=== PATIENT | female | born 1955 | race Caucasian/White ===

== ENCOUNTER 2017-09-22 17:19 | Inpatient (IN) | payer OTHER ==
[~2017-09-22] VITALS: Ht 170.2 cm; Wt 44.0 kg
[2017-09-22] MEDS ORDERED: diphenhydrAMINE HCL 50 MG/ML VIAL - HS PRN IM (19:15)
[2017-09-22] MEDS ORDERED: diphenhydrAMINE HCL 50 MG CAP - HS PRN PO (19:15)
[2017-09-22] MEDS ORDERED: ALUMINUM/MAGNESIUM/SIMETH 30 ML CUP PO PRN (19:15)
[2017-09-22] MEDS ORDERED: LORazepam 2 MG/ML VIAL IV PUSH PRN ×4 (21:00)
[2017-09-22] MEDS ORDERED: FLUMAZENIL 0.5 MG/5 ML VIAL IV PUSH PRN (21:00)
[2017-09-22] MEDS ORDERED: HALOPERIDOL LACTATE 5 MG/ML AMP IM PRN (21:00)
[2017-09-22] MEDS: REMOVE OLD NICOTINE PATCH T-DERMAL SCH (21:00)
[2017-09-22] MEDS: LORazepam 2 MG TAB PO PRN (21:04)
[2017-09-22 21:55] VITALS: BP 82/53; PULSE 81; RESP 18; TEMP 98; O2SAT 98
[2017-09-23] MEDS: LORazepam 2 MG TAB PO PRN ×2 (00:40→20:58)
[2017-09-23 05:41] VITALS: BP 84/52; PULSE 72; RESP 16; TEMP 98; O2SAT 100
[2017-09-23] MEDS: NICOTINE 21 MG/24 HR PATCH T-DERMAL SCH (08:19)
[2017-09-23 09:38] LABS: BLOOD UREA NITROGEN 12 MG/DL (7-18); CALCIUM 8.1 MG/DL (8.5-10.1); CHLORIDE 108 MEQ/L (98-107); CREATININE 0.71 MG/DL (0.50-1.00); GLOMERULAR FILTRATION RATE 84 ML/MIN (>89); GLUCOSE,RANDOM 178 MG/DL (74-106); SODIUM (NA) 140 MEQ/L (136-145)
[2017-09-23 09:39] LABS: CHOLESTEROL 107 MG/DL (120-200); TRIGLYCERIDES 95 MG/DL (42-150)
[2017-09-23 09:41] LABS: CHOLESTEROL/ HDL RATIO 2.17 RATIO; HDL CHOLESTEROL 49.2 MG/DL (40.0-60.0); LDL CHOLESTEROL 39 MG/DL (0-99)
[2017-09-23 10:50] LABS: THYROXINE (T4) 6.3 MCG/DL (4.8-13.9)
[2017-09-23 10:59] LABS: FREE T3 1.65 PG/ML (2.18-3.98)
[2017-09-23] MEDS: LORazepam 1 MG TAB PO PRN ×2 (11:20→16:27)
[2017-09-23] MEDS: ACETAMINOPHEN 325 MG TAB PO PRN (11:21)
[2017-09-23] MEDS ORDERED: POTASSIUM CHLORIDE 20 MEQ PWD PACKET PO ONE (15:30)
--- NOTE | 2017-09-23 15:47 | PD.CONS ---
HPI Service [facility] Consult Requested By Primary Care Physician Unknown Diagnoses: History of Present Illness Mrs. King is a 62-year-old female. She came into the hospital after having hallucination for 2 days. She had been drinking heavily during this period which may be contributory. She is also been feeling very depressed and has a problem with depression in the past. We are evaluating this patient is a medical consult. Current medical conditions include delirium tremens, hypotension, and she has a chronic history of degenerative disc disease and osteoarthritis and has been narcotic dependent with high doses of morphine. She reports that she's been taking short acting morphine 30-60 mg by mouth 4-6 times a day. Her last dose was yesterday. She also takes 1 mg of Xanax 3 times a day and her last dose was yesterday. She is also been jerking 2-3 a call of beverages daily for at least a year and has been binging at higher amounts recently, especially the past 2 days. No reports of any surgical history. Blood pressures have been low but she is on benzodiazepines and she also has a smaller than average body habitus which could result in lower than actual blood pressure readings off a standard cuff. Review of Systems Constitutional: DENIES: Fatigue, Fever, Night Sweats Eyes: DENIES: Blurred vision, Diplopia, Eye inflammation, Eye pain Ears, nose, mouth, throat: DENIES: Hearing loss, Vertigo, Nasal discharge Respiratory: DENIES: Apneas, Cough, Snoring, Wheezing Cardiovascular: DENIES: Chest pain, Palpitations, Syncope Gastrointestinal: DENIES: Abdominal pain, Black stools, Bloody stools Musculoskeletal: COMPLAINS OF: Joint pain, Muscle aches, Stiffness, Back pain, Neck pain Integumentary: DENIES: Abnormal pigmentation, Pruritus, Rash, Nail changes Hematologic/lymphatic: DENIES: Bruising, Lymphadenopathy Immunologic/allergic: DENIES: Eczema, Urticaria Neurologic: DENIES: Abnormal gait, Headache, Paresthesias Psychiatric: COMPLAINS OF: Anxiety, Depression, Hallucinations, DENIES: Confusion Past Family Social History Allergies: Coded Allergies: No Known Allergies (Verified Allergy, Unknown, 09/22/17) Past Medical History History of pneumonia History of left arm DVT History of sciatica Disc herniation history Chronic back pain History of compression fracture History of pelvic wing fracture Past Surgical History None Reported Medications Wellbutrin, 150 mg by mouth twice a day Morphine sulfate 30-60 mg by mouth every 4-6 hours Xanax 1 mg by mouth 3 times a day Active Ordered Medications Administered Medications Medications (Trade) Dose Ordered Sig/Alicia Route PRN Reason Start Time Stop Time Status Last Admin Dose Admin Acetaminophen (Tylenol) 650 mg Q4H PRN PO Pain 1-5 or Temp >101F 09/22/17 19:15 09/23/17 11:21 Nicotine (Habitrol 21 Mg Patch.24 Hr) 1 patch DAILY T-DERMAL 09/23/17 09:00 09/23/17 08:19 Lorazepam (Ativan) 1 mg Q4H PRN PO CIWA 8-10 09/22/17 21:00 09/23/17 11:20 Lorazepam (Ativan) 2 mg Q2H PRN PO CIWA 11-14 09/22/17 21:00 09/23/17 00:40 Family History Her grandfather had depression Social History Patient smokes 1-2 packs per day 2-3 drinks alcohol is patient's baseline and binge drinking occasionally occurs , including for the past 2 days Distant history of cocaine and IV heroin abuse (20 years ago) Physical Exam Vital Signs Vital Signs Date Time Temp Pulse Resp B/P (MAP) Pulse Ox O2 Delivery O2 Flow Rate FiO2 09/23/17 05:41 98.0 72 16 84/52 (63) 100 09/22/17 21:55 98.0 81 18 82/53 (63) 98 Physical Exam GENERAL: NAD, A&Ox3, global cachexia HEAD: Normocephalic. NECK: Supple, trachea midline. No lymphadenopathy. EYES: No scleral icterus. No injection or drainage. CARDIOVASCULAR: Regular rate and rhythm without murmurs, gallops, or rubs. RESPIRATORY: Breath sounds equal bilaterally. No accessory muscle use. GASTROINTESTINAL: Abdomen soft, non-tender, nondistended. MUSCULOSKELETAL: No cyanosis, or edema. SKIN: Warm and dry. No track simon on arms. NEURO: No focal neurological deficitis. Laboratory Laboratory Tests Test 09/23/17 08:35 09/23/17 13:44 Blood Urea Nitrogen 12 Creatinine 0.71 Random Glucose 178 Calcium Level 8.1 Sodium Level 140 Potassium Level 3.3 Chloride Level 108 Carbon Dioxide Level 24.0 Anion Gap 8 Estimat Glomerular Filtration Rate 84 Triglycerides Level 95 Cholesterol Level 107 LDL Cholesterol 39 HDL Cholesterol 49.2 Cholesterol/HDL Ratio 2.17 Thyroxine (T4) 6.3 Free Triiodothyronine (T3) pg/dL 1.65 Thyroid Stimulating Hormone 3rd Gen 1.870 B-Type Natriuretic Peptide 45 Result Diagram: 09/23/17 0835 Assessment and Plan Problem List: (1) Delirium tremens ICD Code: F10.231 - Alcohol dependence with withdrawal delirium (2) Chronic back pain ICD Code: M54.9 - Dorsalgia, unspecified; G89.29 - Other chronic pain (3) Opioid dependence ICD Code: F11.20 - Opioid dependence, uncomplicated (4) Depression ICD Code: F32.9 - Major depressive disorder, single episode, unspecified Assessment and Plan 62-year-old female admitted secondary to depression and hallucination Depression with hallucination Hallucination may have been secondary to acute alcohol binge Management of depression per psychiatry Delirium tremens Benzodiazepine dependence Withdrawal is likely from both alcohol and benzodiazepines CIWA protocol started by psychiatry Follow clinically for improvement and tremors Chronic back pain Opioid dependence Narcotics must be continued to prevent narcotic withdrawal Safer modality would be long-acting narcotics MS Contin started at 15 mg by mouth every 8 hours Plan to follow up in 1-2 days for reassessment of pain Hypotension Asymptomatic Possible artificially low blood pressure cuff readings based on patient's small diameter arms, if standard cuff used Continue to monitor Consider midodrine if readings become lower (drop under 80's systolic) Cachexia Weight loss 30 pound weight loss in 3 months (reported) May be depression related I do not immediately suspect an eating disorder Encourage PO intake Nicotine dependence NicoDerm Hypokalemia Replace monitor potassium level BMP in a.m. DVT Prophylaxis Patient is ambulatory Enoch Urbano MD Sep 23, 2017 15:47
[2017-09-23 16:15] LABS: HEMOGLOBIN A1C 5.3 % (4.3-6.0)
[2017-09-23] MEDS: SERTRALINE HCL 50 MG TAB PO SCH (16:18)
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
[2017-09-23] MEDS ORDERED: MORPHINE SULFATE 15 MG CONTROLLED RELEASE TAB PO ONE (16:45)
[2017-09-23] MEDS ORDERED: NICOTINE 21 MG/24 HR PATCH T-DERMAL ONE (16:45)
[2017-09-23 17:51] VITALS: BP 129/76; PULSE 76; RESP 18; TEMP 97.1; O2SAT 95
[2017-09-23] MEDS: REMOVE OLD NICOTINE PATCH T-DERMAL SCH (20:58)
[2017-09-23] MEDS ORDERED: traZODone HCL 50 MG TAB PO PRN (21:00)
[2017-09-23] MEDS: MORPHINE SULFATE 15 MG CONTROLLED RELEASE TAB PO SCH (21:56)
[2017-09-23 22:00] VITALS: BP 122/78; PULSE 140; RESP 18; O2SAT 88
[2017-09-24] MEDS: LORazepam 1 MG TAB PO PRN (03:36)
[2017-09-24 05:51] VITALS: BP 145/67; PULSE 76; RESP 16; TEMP 98.4; O2SAT 99
[2017-09-24] MEDS: MORPHINE SULFATE 15 MG CONTROLLED RELEASE TAB PO SCH ×3 (06:03→21:12)
[2017-09-24] MEDS: NICOTINE 21 MG/24 HR PATCH T-DERMAL SCH (07:49)
[2017-09-24] MEDS: SERTRALINE HCL 50 MG TAB PO SCH (07:50)
[2017-09-24] MEDS: hydrOXYzine HCL 50 MG TAB PO PRN ×2 (08:54→21:15)
[2017-09-24] MEDS ORDERED: NICOTINE 21 MG/24 HR PATCH T-DERMAL SCH (09:00)
[2017-09-24] MEDS ORDERED: REMOVE OLD PATCH T-DERMAL SCH (09:00)
[2017-09-24] MEDS ORDERED: POTASSIUM CHLORIDE 10 MEQ CONTROLLED RELEASE TAB PO ONE (10:45)
--- NOTE | 2017-09-24 11:02 | HHI.PR ---
Subjective Remarks The patient said that she was in a lot of pain. She said that she gets low potassium because she doesn't eat when she is withdrawing and she has had metabolic acidosis in the past. She does not want to be in the hospital much longer. Discussed with Dr. Henry. Objective Vitals Vital Signs Date Time Temp Pulse Resp B/P (MAP) Pulse Ox O2 Delivery O2 Flow Rate FiO2 09/24/17 05:51 98.4 76 16 145/67 (93) 99 09/23/17 22:00 140 18 122/78 (93) 88 09/23/17 17:51 97.1 76 18 129/76 (93) 95 Result Diagram: 09/23/17 0835 Objective Remarks GENERAL: Resting comfortably in bed. HEAD: Normocephalic. NECK: Supple, trachea midline. No lymphadenopathy. EYES: No scleral icterus. No injection or drainage. CARDIOVASCULAR: Regular rate and rhythm without murmurs, gallops, or rubs. RESPIRATORY: Breath sounds equal bilaterally. No accessory muscle use. GASTROINTESTINAL: Abdomen soft, non-tender, nondistended. MUSCULOSKELETAL: No cyanosis, or edema. SKIN: Warm and dry. No track simon on arms. NEURO: No focal neurological deficits. PSYCH: Teary-eyed. Medications and IVs Current Medications Medications (Trade) Dose Ordered Sig/Alicia Route Start Time Stop Time Status Last Admin (Atarax) 50 mg Q6H PRN PO 09/22/17 19:15 09/24/17 08:54 (Tylenol) 650 mg Q4H PRN PO 09/22/17 19:15 09/23/17 11:21 (Milk Of Magnesia Liq) 30 ml DAILY PRN PO 09/22/17 19:15 (Mag-Al Plus Susp Liq) 30 ml Q6H PRN PO 09/22/17 19:15 (Habitrol 21 Mg Patch.24 Hr) 1 patch DAILY T-DERMAL 09/23/17 09:00 09/24/17 07:49 Miscellaneous Information 1 HS T-DERMAL 09/22/17 21:00 (Ativan) 1 mg Q4H PRN PO 09/22/17 21:00 09/24/17 03:36 (Ativan Inj) 1 mg Q4H PRN IV PUSH 09/22/17 21:00 (Ativan) 2 mg Q2H PRN PO 09/22/17 21:00 09/23/17 20:58 (Ativan Inj) 2 mg Q2H PRN IV PUSH 09/22/17 21:00 (Ativan Inj) 2 mg Q1H PRN IV PUSH 09/22/17 21:00 (Ativan Inj) 2 mg Q15M PRN IV PUSH 09/22/17 21:00 (Haldol Inj) 2 mg Q15M PRN IM 09/22/17 21:00 (Romazicon Inj) 0.2 mg Q1M PRN IV PUSH 09/22/17 21:00 (Zoloft) 50 mg DAILY PO 09/23/17 15:30 09/24/17 07:50 (Oramorph Sr) 15 mg Q8HR PO 09/23/17 22:00 09/24/17 06:03 (Remeron) 15 mg HS PO 09/24/17 21:00 A/P Problem List: (1) Delirium tremens ICD Code: F10.231 - Alcohol dependence with withdrawal delirium (2) Chronic back pain ICD Code: M54.9 - Dorsalgia, unspecified; G89.29 - Other chronic pain (3) Opioid dependence ICD Code: F11.20 - Opioid dependence, uncomplicated (4) Depression ICD Code: F32.9 - Major depressive disorder, single episode, unspecified Assessment and Plan Depression with hallucination Hallucination may have been secondary to acute alcohol binge. - Management of depression per psychiatry. Delirium tremens/ Benzodiazepine dependence Withdrawal is likely from both alcohol and benzodiazepines. - CIWA protocol started by psychiatry. - Follow clinically for improvement and tremors. Chronic back pain/ Opioid dependence Narcotics must be continued to prevent narcotic withdrawal. Safer modality would be long-acting narcotics. - MS Contin started at 15 mg by mouth every 8 hours. Wean as tolerated. Cachexia/ Weight loss 30 pound weight loss in 3 months (reported). May be depression related. - Encourage PO intake. Ensure with meals. Nicotine dependence The pt is a smoker. - NicoDerm. Hypokalemia The pt says she usually gets low potassium when she doesn't eat. - Replace and monitor potassium level. - encourage PO intake. Hyperglycemia Likely a stress reaction as her hemoglobin A1c was 5.3%. - Resolved. DVT Prophylaxis: Patient is ambulatory Gaurav Arreola DO Sep 24, 2017 11:02
[2017-09-24 11:19] LABS: AUTOMATED NEUTROPHIL # 4.6 TH/MM3 (1.8-7.7); BASOPHIL % 0.3 % (0.0-2.0); EOSINOPHIL # 0.2 TH/MM3 (0-0.4); EOSINOPHIL % 3.5 % (0.0-4.0); HEMATOCRIT 36.3 % (35.0-46.0); HEMOGLOBIN 11.9 GM/DL (11.6-15.3); LYMPH % 16.2 % (9.0-44.0); MEAN CELL VOLUME 94.1 FL (80.0-100.0); MEAN CORPUSCULAR HEMOGLOBIN 30.7 PG (27.0-34.0); MEAN CORPUSCULAR HGB CONC 32.7 % (32.0-36.0); MEAN PLATELET VOLUME 9.2 FL (7.0-11.0); MONO % 8.3 % (0.0-8.0); MONOCYTE # 0.5 TH/MM3 (0-0.9); NEUT % 71.7 % (16.0-70.0); PLATELET COUNT 181 TH/MM3 (150-450); RED BLOOD COUNT 3.86 MIL/MM3 (4.00-5.30); RED CELL DISTRIBUTION WIDTH 14.4 % (11.6-17.2); WHITE BLOOD COUNT 6.4 TH/MM3 (4.0-11.0)
[2017-09-24 11:42] LABS: ALBUMIN 2.8 GM/DL (3.4-5.0); AST (GOT) 30 U/L (15-37); BLOOD UREA NITROGEN 5 MG/DL (7-18); CALCIUM 8.4 MG/DL (8.5-10.1); CHLORIDE 108 MEQ/L (98-107); CREATININE 0.51 MG/DL (0.50-1.00); GLOMERULAR FILTRATION RATE 123 ML/MIN (>89); GLUCOSE,RANDOM 87 MG/DL (74-106); SODIUM (NA) 142 MEQ/L (136-145)
[2017-09-24 11:43] LABS: ALT (GPT) 15 U/L (10-53)
[2017-09-24 11:46] LABS: ALKALINE PHOSPHATASE 106 U/L (45-117); TOTAL BILIRUBIN ADULT 0.4 MG/DL (0.2-1.0); TOTAL PROTEIN 6.4 GM/DL (6.4-8.2)
--- NOTE | 2017-09-24 12:44 | HHI.PYPN ---
Subjective Remarks Patient seen for follow-up, chart reviewed. Discussion she staff reported the patient was noted to be med seeking since yesterday. Patient found, cooperative. Patient states that she had a terrible night with difficult he was sleeping. Patient states that she wanted be discharged tomorrow but was explained the patient currently at risk for withdrawal which she states "I have been in tons of withdrawal in the past". Patient also continues to request increased dosage of opioid analgesics. Patient denies any suicidal ideations, reports her mood being the same but noted to be slightly irritable when advised that patient currently not stable for discharge yet. Review of Systems Except as stated in HPI: all other systems reviewed are Neg Mental Status Examination Appearance: Appropriate Consciousness: Alert Orientation: Person, Place, Date/Time Motor Activity: Normal gait Speech: Unremarkable Language: Adequate Fund of Knowledge: Inadequate Attention and Concentration: Adequate Memory: Unremarkable Mood: Anxious Affect: Irritable, Other (tearful at times) Thought Process & Associations: Goal directed, Linear Thought Content: Appropriate Hallucination Type: None Delusion Type: None Suicidal Ideation: No Suicidal Plan: No Suicidal Intention: No Homicidal Ideation: No Homicidal Plan: No Homicidal Intention: No Insight: Fair Judgment: Impulsive Results Labs Labs reviewed Test 09/23/17 13:44 09/24/17 09:56 B-Type Natriuretic Peptide 45 PG/ML Random Cortisol 17.6 MCG/DL White Blood Count 6.4 TH/MM3 Red Blood Count 3.86 MIL/MM3 Hemoglobin 11.9 GM/DL Hematocrit 36.3 % Mean Corpuscular Volume 94.1 FL Mean Corpuscular Hemoglobin 30.7 PG Mean Corpuscular Hemoglobin Concent 32.7 % Red Cell Distribution Width 14.4 % Platelet Count 181 TH/MM3 Mean Platelet Volume 9.2 FL Neutrophils (%) (Auto) 71.7 % Lymphocytes (%) (Auto) 16.2 % Monocytes (%) (Auto) 8.3 % Eosinophils (%) (Auto) 3.5 % Basophils (%) (Auto) 0.3 % Neutrophils # (Auto) 4.6 TH/MM3 Lymphocytes # (Auto) 1.0 TH/MM3 Monocytes # (Auto) 0.5 TH/MM3 Eosinophils # (Auto) 0.2 TH/MM3 Basophils # (Auto) 0.0 TH/MM3 CBC Comment DIFF FINAL Differential Comment Blood Urea Nitrogen 5 MG/DL Creatinine 0.51 MG/DL Random Glucose 87 MG/DL Total Protein 6.4 GM/DL Albumin 2.8 GM/DL Calcium Level 8.4 MG/DL Alkaline Phosphatase 106 U/L Aspartate Amino Transf (AST/SGOT) 30 U/L Alanine Aminotransferase (ALT/SGPT) 15 U/L Total Bilirubin 0.4 MG/DL Sodium Level 142 MEQ/L Potassium Level 3.6 MEQ/L Chloride Level 108 MEQ/L Carbon Dioxide Level 22.0 MEQ/L Anion Gap 12 MEQ/L Estimat Glomerular Filtration Rate 123 ML/MIN Vitals/IOs Vital Signs Date Time Temp Pulse Resp B/P (MAP) Pulse Ox O2 Delivery O2 Flow Rate FiO2 09/24/17 05:51 98.4 76 16 145/67 (93) 99 Assessment & Plan Problem List: (1) Depression ICD Codes: F32.9 - Major depressive disorder, single episode, unspecified (2) Alcohol use disorder ICD Codes: F10.99 - Alcohol use, unspecified with unspecified alcohol-induced disorder (3) Opioid dependence ICD Codes: F11.20 - Opioid dependence, uncomplicated Assessment & Plan At this time noted to be alert and oriented 3, cooperative interview. Patient denies any any suicidal ideations, stating that she would like to be discharged tomorrow although patient currently at risk for withdrawal from benzodiazepine use. Patient reluctantly agreed to continue hospitalization would like discharge of Wednesday if patient cleared from withdrawal. Continue current treatment. Avoid benzodiazepines for anxiety unless necessary as per CIWA scores. We'll discontinue trazodone as patient stated did not help, add mirtazapine 50 mg daily at bedtime to assist with sleep disturbance, adjectives for depression as well as increased appetite. Continue with the medications. Continue recommendations as per primary medical team. Discharge planning in progress. Justification for Cont. Inpt. At risk for further decompensation if at lower level of care Discharge Planning Patient to return back to her residence once psychiatrically medically cleared Remigio Henry MD Sep 24, 2017 12:44
[2017-09-24] MEDS: ACETAMINOPHEN 325 MG TAB PO PRN ×2 (13:12→21:12)
[2017-09-24 18:32] VITALS: BP 124/86; PULSE 70; RESP 18; TEMP 99.2; O2SAT 96
[2017-09-24] MEDS: REMOVE OLD NICOTINE PATCH T-DERMAL SCH (21:00)
[2017-09-24] MEDS: MIRTAZAPINE 15 MG TAB PO SCH (21:12)
[2017-09-25] MEDS: ACETAMINOPHEN 325 MG TAB PO PRN ×2 (02:10→09:38)
[2017-09-25] MEDS: hydrOXYzine HCL 50 MG TAB PO PRN (03:33)
[2017-09-25] MEDS: MORPHINE SULFATE 15 MG CONTROLLED RELEASE TAB PO SCH ×3 (05:53→21:13)
[2017-09-25 06:07] VITALS: BP 156/74; PULSE 66; RESP 16; TEMP 98.3; O2SAT 96
[2017-09-25] MEDS: SERTRALINE HCL 50 MG TAB PO SCH (09:30)
[2017-09-25] MEDS: NICOTINE 21 MG/24 HR PATCH T-DERMAL SCH (09:30)
[2017-09-25 10:32] LABS: BICARBONATE 21.2 MEQ/L (21.0-32.0); CALCIUM 9.1 MG/DL (8.5-10.1); CREATININE 0.56 MG/DL (0.50-1.00); MAGNESIUM 2.2 MG/DL (1.5-2.5)
[2017-09-25 10:33] LABS: PHOSPHORUS 2.8 MG/DL (2.5-4.9)
--- NOTE | 2017-09-25 11:54 | HHI.PR ---
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 She seems to understand that she needs to wean off of the medications. She would like ibuprofen for her chronic pains. She had no other acute complaints. Objective Vitals Vital Signs Date Time Temp Pulse Resp B/P (MAP) Pulse Ox O2 Delivery O2 Flow Rate FiO2 09/25/17 06:07 98.3 66 16 156/74 (101) 96 09/24/17 18:32 99.2 70 18 124/86 (99) 96 I/O 09/24/17 09/24/17 09/24/17 09/25/17 09/25/17 09/25/17 07:00 15:00 23:00 07:00 15:00 23:00 Intake Total 120 ml Balance 120 ml Intake Oral 120 ml Result Diagram: 09/24/1756 09/25/17 0910 Objective Remarks GENERAL: Resting comfortably in bed. HEAD: Normocephalic. NECK: Supple, trachea midline. No lymphadenopathy. EYES: No scleral icterus. No injection or drainage. CARDIOVASCULAR: Regular rate and rhythm without murmurs, gallops, or rubs. RESPIRATORY: Breath sounds equal bilaterally. No accessory muscle use. GASTROINTESTINAL: Abdomen soft, non-tender, nondistended. MUSCULOSKELETAL: No cyanosis, or edema. SKIN: Warm and dry. No track simon on arms. NEURO: No focal neurological deficits. PSYCH: Mood and affect appropriate. Medications and IVs Current Medications Medications (Trade) Dose Ordered Sig/Alicia Route Start Time Stop Time Status Last Admin (Atarax) 50 mg Q6H PRN PO 09/22/17 19:15 09/25/17 03:33 (Tylenol) 650 mg Q4H PRN PO 09/22/17 19:15 09/25/17 09:38 (Milk Of Magnesia Liq) 30 ml DAILY PRN PO 09/22/17 19:15 (Mag-Al Plus Susp Liq) 30 ml Q6H PRN PO 09/22/17 19:15 (Habitrol 21 Mg Patch.24 Hr) 1 patch DAILY T-DERMAL 09/23/17 09:00 09/25/17 09:30 Miscellaneous Information 1 HS T-DERMAL 09/22/17 21:00 09/24/17 21:00 (Ativan) 1 mg Q4H PRN PO 09/22/17 21:00 09/24/17 03:36 (Ativan Inj) 1 mg Q4H PRN IV PUSH 09/22/17 21:00 (Ativan) 2 mg Q2H PRN PO 09/22/17 21:00 09/23/17 20:58 (Ativan Inj) 2 mg Q2H PRN IV PUSH 09/22/17 21:00 (Ativan Inj) 2 mg Q1H PRN IV PUSH 09/22/17 21:00 (Ativan Inj) 2 mg Q15M PRN IV PUSH 09/22/17 21:00 (Haldol Inj) 2 mg Q15M PRN IM 09/22/17 21:00 (Romazicon Inj) 0.2 mg Q1M PRN IV PUSH 09/22/17 21:00 (Zoloft) 50 mg DAILY PO 09/23/17 15:30 09/25/17 09:30 (Oramorph Sr) 15 mg Q8HR PO 09/23/17 22:00 09/25/17 05:53 (Remeron) 15 mg HS PO 09/24/17 21:00 09/24/17 21:12 A/P Problem List: (1) Delirium tremens ICD Code: F10.231 - Alcohol dependence with withdrawal delirium (2) Chronic back pain ICD Code: M54.9 - Dorsalgia, unspecified; G89.29 - Other chronic pain (3) Opioid dependence ICD Code: F11.20 - Opioid dependence, uncomplicated (4) Depression ICD Code: F32.9 - Major depressive disorder, single episode, unspecified Assessment and Plan Depression with hallucination Hallucination may have been secondary to acute alcohol binge. - Management of depression per psychiatry. Delirium tremens/ Benzodiazepine dependence Withdrawal is likely from both alcohol and benzodiazepines. - CIWA protocol started by psychiatry. - Follow clinically for improvement and tremors. Chronic back pain/ Opioid dependence Narcotics must be continued to prevent narcotic withdrawal. Safer modality would be long-acting narcotics. - MS Contin started at 15 mg by mouth every 8 hours. Wean as tolerated. - add ibuprofen as needed for pain. Cachexia/ Weight loss 30 pound weight loss in 3 months (reported). May be depression related. - Encourage PO intake. Ensure with meals. Nicotine dependence The pt is a smoker. - NicoDerm. Hyperglycemia Likely a stress reaction as her hemoglobin A1c was 5.3%. - Resolved. DVT Prophylaxis: Patient is ambulatory Gaurav Arreola DO Sep 25, 2017 11:54
[2017-09-25] MEDS: IBUPROFEN 800 MG TAB PO PRN ×2 (12:43→22:15)
--- NOTE | 2017-09-25 12:47 | HHI.PYPN ---
Subjective Remarks Patient was seen and case discussed with nursing. CIWA is 1. Patient is pleasant and cooperative with exam. Insight is slowly improving. She describes her mood today is "alright." She is joking throughout the interview. She denies suicidal homicidal ideation intent or plan. Tolerating medications well Mental Status Examination Appearance: Appropriate Consciousness: Alert Orientation: Person, Place, Date/Time Motor Activity: Normal gait Speech: Unremarkable Language: Adequate Fund of Knowledge: Inadequate Attention and Concentration: Adequate Memory: Unremarkable Mood: Sad, Anxious Affect: Anxious Thought Process & Associations: Goal directed, Linear Thought Content: Appropriate Hallucination Type: None Delusion Type: None Suicidal Ideation: No Suicidal Plan: No Suicidal Intention: No Homicidal Ideation: No Homicidal Plan: No Homicidal Intention: No Insight: Fair Judgment: Impulsive Results Labs Test 09/25/17 09:10 Blood Urea Nitrogen 5 MG/DL Creatinine 0.56 MG/DL Random Glucose 138 MG/DL Calcium Level 9.1 MG/DL Phosphorus Level 2.8 MG/DL Magnesium Level 2.2 MG/DL Sodium Level 138 MEQ/L Potassium Level 3.7 MEQ/L Chloride Level 108 MEQ/L Carbon Dioxide Level 21.2 MEQ/L Anion Gap 9 MEQ/L Estimat Glomerular Filtration Rate 110 ML/MIN Vitals/IOs Vital Signs Date Time Temp Pulse Resp B/P (MAP) Pulse Ox O2 Delivery O2 Flow Rate FiO2 09/25/17 06:07 98.3 66 16 156/74 (101) 96 Assessment & Plan Problem List: (1) Depression ICD Codes: F32.9 - Major depressive disorder, single episode, unspecified (2) Alcohol use disorder ICD Codes: F10.99 - Alcohol use, unspecified with unspecified alcohol-induced disorder (3) Opioid dependence ICD Codes: F11.20 - Opioid dependence, uncomplicated Assessment & Plan Continue current treatment plan Justification for Cont. Inpt. Patient would decompensate in a less restrictive setting Alexsander Pastor DO Sep 25, 2017 12:47
[2017-09-25 17:38] VITALS: BP 143/97; PULSE 97; RESP 16; TEMP 97.8; O2SAT 97
[2017-09-25] MEDS: REMOVE OLD NICOTINE PATCH T-DERMAL SCH (21:00)
[2017-09-25] MEDS: MIRTAZAPINE 15 MG TAB PO SCH (21:12)
[2017-09-26] MEDS: MORPHINE SULFATE 15 MG CONTROLLED RELEASE TAB PO SCH ×3 (05:00→21:22)
[2017-09-26 05:55] VITALS: BP 156/70; PULSE 50; RESP 16; TEMP 97.5; O2SAT 97
[2017-09-26] MEDS: IBUPROFEN 800 MG TAB PO PRN (08:37)
[2017-09-26] MEDS: NICOTINE 21 MG/24 HR PATCH T-DERMAL SCH (08:37)
[2017-09-26] MEDS: SERTRALINE HCL 50 MG TAB PO SCH (08:37)
--- NOTE | 2017-09-26 12:46 | HHI.PYPN ---
Subjective Remarks Patient was seen and case discussed with nursing. Patient continues to improve. CIWA is 1 secondary to anxiety. Patient is bright, cheerful, and joking throughout the interview. Says her mood has improved and she denies suicidal or homicidal ideation intent or plan. She had a visit from her brother and her . His compliant with her medications. Outpatient goals include therapy at [facility] Mental Status Examination Appearance: Appropriate Consciousness: Alert Orientation: x4, Person, Place, Date/Time Motor Activity: Normal gait Speech: Unremarkable Language: Adequate Fund of Knowledge: Inadequate Attention and Concentration: Adequate Memory: Unremarkable Mood: Appropriate Affect: Appropriate Thought Process & Associations: Goal directed, Linear Thought Content: Appropriate Hallucination Type: None Delusion Type: None Suicidal Ideation: No Suicidal Plan: No Suicidal Intention: No Homicidal Ideation: No Homicidal Plan: No Homicidal Intention: No Insight: Fair Judgment: Impulsive Results Vitals/IOs Vital Signs Date Time Temp Pulse Resp B/P (MAP) Pulse Ox O2 Delivery O2 Flow Rate FiO2 09/26/17 07:07 16 09/26/17 05:55 97.5 50 156/70 (98) 97 Assessment & Plan Problem List: (1) Depression ICD Codes: F32.9 - Major depressive disorder, single episode, unspecified (2) Alcohol use disorder ICD Codes: F10.99 - Alcohol use, unspecified with unspecified alcohol-induced disorder (3) Opioid dependence ICD Codes: F11.20 - Opioid dependence, uncomplicated Assessment & Plan Continue current treatment plan Justification for Cont. Inpt. Patient will decompensate in a less restrictive setting Alexsander Pastor DO Sep 26, 2017 12:46
[2017-09-26 18:48] VITALS: BP 151/67; PULSE 57; RESP 16; TEMP 98.1; O2SAT 96
[2017-09-26] MEDS: REMOVE OLD NICOTINE PATCH T-DERMAL SCH (21:00)
[2017-09-26] MEDS: MIRTAZAPINE 15 MG TAB PO SCH (21:22)
[2017-09-27] MEDS: MORPHINE SULFATE 15 MG CONTROLLED RELEASE TAB PO SCH ×3 (05:21→22:09)
[2017-09-27 06:24] VITALS: BP 164/100; PULSE 86; RESP 16; TEMP 97.8; O2SAT 97
[2017-09-27 06:40] VITALS: BP 142/86
[2017-09-27] MEDS: SERTRALINE HCL 50 MG TAB PO SCH (08:57)
[2017-09-27] MEDS: NICOTINE 21 MG/24 HR PATCH T-DERMAL SCH (08:58)
--- NOTE | 2017-09-27 09:22 | HHI.PR ---
Addendum to Inpatient Note Addendum Reason: Additional Documentation Additional Information At ~09:05am, patient's nurse requested I evaluate this patient of Dr. Henry out of concern for change in status as I was the only physician on the unit at the time. I found the patient laying in bed on left side. She is lethargic and responds weakly to commands. She does not verbalize any words but does grunt softly. She appears to have sputum coming from her mouth. I note no miosis or mydriasis, no tremor, no diaphoresis, no tonic/clonic activity noted. Vital signs obtained and were unremarkable except for pulse in mid-50's. O2 Sat 96% on RA. I have initiated a HaliCAT and notified Dr. Henry by phone; he will come to the unit to evaluate patient presently. Lito Resendez MD Sep 27, 2017 09:22
--- NOTE | 2017-09-27 10:01 | HHI.PYPN ---
Subjective Remarks Patient seen today for follow up; chart reviewed. Passenger Car Conductor was notified of seizure like activity by Dr. Alejandre as he was on the unit at time of the event. Patient seen by me shortly thereafter and was found to be appearing lethargic with VS wnl, was alert but no verbal interaction. Patient initially was observed by Dr. Alejandre to not have any tonic-clonic activity during first seizure-like activity, no incontinence, with eyes closed. Patient while Halicat response was concluding, patient began what appeared to be tonic-clonic like activity with eyes closed, no incontinence or evidence of tongue biting, VSS, given Ativan 2mg IM x 1 which patient began to open eyes and was able to stand up and walk over to stretcher to be transferred to medical/psychiatry unit for further evaluation and management. Review of Systems Except as stated in HPI: all other systems reviewed are Neg Mental Status Examination Appearance: Appropriate Consciousness: Lethargic Orientation: x4, Person, Place, Date/Time Motor Activity: Normal gait Speech: Unremarkable Language: Adequate Fund of Knowledge: Inadequate Attention and Concentration: Adequate Memory: Unremarkable Mood: Appropriate Affect: Appropriate Thought Process & Associations: Other Thought Content: Other Hallucination Type: None Delusion Type: None Suicidal Ideation: No Suicidal Plan: No Suicidal Intention: No Homicidal Ideation: No Homicidal Plan: No Homicidal Intention: No Insight: Fair Judgment: Impulsive Results Vitals/IOs Vital Signs Date Time Temp Pulse Resp B/P (MAP) Pulse Ox O2 Delivery O2 Flow Rate FiO2 09/27/17 06:40 142/86 (104) 09/27/17 06:38 16 09/27/17 06:24 97.8 86 97 Assessment & Plan Problem List: (1) Depression ICD Codes: F32.9 - Major depressive disorder, single episode, unspecified (2) Alcohol use disorder ICD Codes: F10.99 - Alcohol use, unspecified with unspecified alcohol-induced disorder (3) Opioid dependence ICD Codes: F11.20 - Opioid dependence, uncomplicated Assessment & Plan Patient with seizure-like activity which patient transferred to medical/ psychiatry unit for further evaluation and management. Patient had low CIWA scores since admission and has been observed to not have significant signs of withdrawal. Pain management as per primary medical team. Patient had two apparent seizures, second which was noted to be tonic-clonic and given Ativan 2mg IM x 1. Will consult neurology for assessment of possible seizures vs. pseudoseizures. Continue CIWA, neurochecks q4hrs, seizure precautions. Discharge planning in progress. Justification for Cont. Inpt. At risk for further decompensation at lower level of care. Discharge Planning Patient to return back to her residence once medically/psychiatrically cleared. Remigio Henry MD Sep 27, 2017 10:01
[2017-09-27] MEDS ORDERED: LORazepam 2 MG/ML VIAL IV PUSH PRN (13:15)
--- NOTE | 2017-09-27 13:30 | HHI.PR ---
Subjective Remarks Follow-up seizure. Reportedly had tonic-clonic seizure this morning. Patient reports of history of seizure. Currently sedated after receiving Ativan. States she had headache earlier but no fever, chills, numbness and focal weakness Objective Vitals Vital Signs Date Time Temp Pulse Resp B/P (MAP) Pulse Ox O2 Delivery O2 Flow Rate FiO2 09/27/17 06:40 142/86 (104) 09/27/17 06:38 16 09/27/17 06:24 97.8 86 16 164/100 (121) 97 09/26/17 18:48 98.1 57 16 151/67 (95) 96 I/O 09/26/17 09/26/17 09/26/17 09/27/17 09/27/17 09/27/17 07:00 15:00 23:00 07:00 15:00 23:00 Intake Total 240 ml Balance 240 ml Intake Oral 240 ml Result Diagram: 09/24/1756 09/25/17 0910 Objective Remarks GENERAL: Resting comfortably in bed. HEAD: Normocephalic. NECK: Supple, trachea midline. No lymphadenopathy. EYES: No scleral icterus. No injection or drainage. CARDIOVASCULAR: Regular rate and rhythm without murmurs, gallops, or rubs. RESPIRATORY: Breath sounds equal bilaterally. No accessory muscle use. GASTROINTESTINAL: Abdomen soft, non-tender, nondistended. MUSCULOSKELETAL: No cyanosis, or edema. SKIN: Warm and dry. No track simon on arms. NEURO: Sedated easily arousable. Answering questions and following commands appropriately. Moving all extremities A/P Problem List: (1) Delirium tremens ICD Code: F10.231 - Alcohol dependence with withdrawal delirium (2) Chronic back pain ICD Code: M54.9 - Dorsalgia, unspecified; G89.29 - Other chronic pain (3) Opioid dependence ICD Code: F11.20 - Opioid dependence, uncomplicated (4) Depression ICD Code: F32.9 - Major depressive disorder, single episode, unspecified Assessment and Plan Seizure. Stat HCT, EEG, CBC, BMP and CK. Check FS. IVF x one liter. Seizure precautions. Ativan as needed Depression with hallucination Hallucination may have been secondary to acute alcohol binge. - Management of depression per psychiatry. Delirium tremens/ Benzodiazepine dependence Withdrawal is likely from both alcohol and benzodiazepines. - CIWA protocol started by psychiatry. - Follow clinically for improvement and tremors. Chronic back pain/ Opioid dependence Narcotics must be continued to prevent narcotic withdrawal. Safer modality would be long-acting narcotics. - MS Contin started at 15 mg by mouth every 8 hours. Wean as tolerated. - add ibuprofen as needed for pain. - med rec miguelito RN Cachexia/ Weight loss 30 pound weight loss in 3 months (reported). May be depression related. - Encourage PO intake. Ensure with meals. - Op Mammo, Pap and Cscope - CXR Nicotine dependence The pt is a smoker. - NicoDerm. Hyperglycemia Likely a stress reaction as her hemoglobin A1c was 5.3%. - Resolved. DVT Prophylaxis: Patient is ambulatory Mike Valenzuela MD Sep 27, 2017 13:30
[2017-09-27] MEDS ORDERED: NS + KCL 20 MEQ INJ 1,000 ML IV SCH (14:00)
--- NOTE | 2017-09-27 14:23 | RADRPT ---
EXAM DATE/TIME: 09/27/2017 13:39 [facility] COMPARISON: No previous studies available for comparison. INDICATIONS : Cough. MEDICAL HISTORY : None. SURGICAL HISTORY : None. ENCOUNTER: Initial ACUITY: 1 day PAIN SCORE: 0/10 LOCATION: Bilateral chest FINDINGS: Moderate peribronchial thickening without other consolidation or pneumothorax. The heart and pulmonar y vascularity are normal. The portion of the bony skeleton visualized is unremarkable. CONCLUSION: Moderate peribronchial thickening. Nba Escalera MD FACR on September 27, 2017 at 14:20 Board Certified Radiologist. This report was verified electronically.
[2017-09-27 16:15] LABS: AUTOMATED NEUTROPHIL # 7.2 TH/MM3 (1.8-7.7); BASOPHIL # 0.1 TH/MM3 (0-0.2); BASOPHIL % 0.6 % (0.0-2.0); EOSINOPHIL # 0.1 TH/MM3 (0-0.4); EOSINOPHIL % 0.7 % (0.0-4.0); HEMATOCRIT 42.9 % (35.0-46.0); HEMOGLOBIN 14.4 GM/DL (11.6-15.3); LYMPH % 15.2 % (9.0-44.0); LYMPHOCYTE # 1.5 TH/MM3 (1.0-4.8); MEAN CORPUSCULAR HEMOGLOBIN 30.8 PG (27.0-34.0); MEAN CORPUSCULAR HGB CONC 33.5 % (32.0-36.0); MEAN PLATELET VOLUME 8.4 FL (7.0-11.0); MONO % 9.8 % (0.0-8.0); NEUT % 73.7 % (16.0-70.0); PLATELET COUNT 297 TH/MM3 (150-450); RED BLOOD COUNT 4.66 MIL/MM3 (4.00-5.30); RED CELL DISTRIBUTION WIDTH 13.9 % (11.6-17.2); WHITE BLOOD COUNT 9.7 TH/MM3 (4.0-11.0)
[2017-09-27 16:40] LABS: BICARBONATE 20.4 MEQ/L (21.0-32.0); CREATININE 0.6 MG/DL (0.50-1.00); MAGNESIUM 2.2 MG/DL (1.5-2.5)
--- NOTE | 2017-09-27 17:46 | HHI.PYPN ---
Subjective Remarks Patient seen for follow-up, chart reviewed. Mental Status Examination Appearance: Appropriate Consciousness: Lethargic Orientation: x4, Person, Place, Date/Time Motor Activity: Normal gait Speech: Unremarkable Language: Adequate Fund of Knowledge: Inadequate Attention and Concentration: Adequate Memory: Unremarkable Mood: Appropriate Affect: Appropriate Thought Process & Associations: Other Thought Content: Other Hallucination Type: None Delusion Type: None Suicidal Ideation: No Suicidal Plan: No Suicidal Intention: No Homicidal Ideation: No Homicidal Plan: No Homicidal Intention: No Insight: Fair Judgment: Impulsive Results Labs Test 09/27/17 15:29 White Blood Count 9.7 TH/MM3 Red Blood Count 4.66 MIL/MM3 Hemoglobin 14.4 GM/DL Hematocrit 42.9 % Mean Corpuscular Volume 92.0 FL Mean Corpuscular Hemoglobin 30.8 PG Mean Corpuscular Hemoglobin Concent 33.5 % Red Cell Distribution Width 13.9 % Platelet Count 297 TH/MM3 Mean Platelet Volume 8.4 FL Neutrophils (%) (Auto) 73.7 % Lymphocytes (%) (Auto) 15.2 % Monocytes (%) (Auto) 9.8 % Eosinophils (%) (Auto) 0.7 % Basophils (%) (Auto) 0.6 % Neutrophils # (Auto) 7.2 TH/MM3 Lymphocytes # (Auto) 1.5 TH/MM3 Monocytes # (Auto) 1.0 TH/MM3 Eosinophils # (Auto) 0.1 TH/MM3 Basophils # (Auto) 0.1 TH/MM3 CBC Comment DIFF FINAL Differential Comment Blood Urea Nitrogen 9 MG/DL Creatinine 0.60 MG/DL Random Glucose 90 MG/DL Calcium Level 9.0 MG/DL Magnesium Level 2.2 MG/DL Sodium Level 142 MEQ/L Potassium Level 3.4 MEQ/L Chloride Level 114 MEQ/L Carbon Dioxide Level 20.4 MEQ/L Anion Gap 8 MEQ/L Estimat Glomerular Filtration Rate 102 ML/MIN Total Creatine Kinase 89 U/L Vitals/IOs Vital Signs Date Time Temp Pulse Resp B/P (MAP) Pulse Ox O2 Delivery O2 Flow Rate FiO2 09/27/17 06:40 142/86 (104) 09/27/17 06:38 16 09/27/17 06:24 97.8 86 97 Intake and Output 09/27/17 09/27/17 09/28/17 08:00 16:00 00:00 Intake Total 120 ml Balance 120 ml Assessment & Plan Problem List: (1) Depression ICD Codes: F32.9 - Major depressive disorder, single episode, unspecified (2) Alcohol use disorder ICD Codes: F10.99 - Alcohol use, unspecified with unspecified alcohol-induced disorder (3) Opioid dependence ICD Codes: F11.20 - Opioid dependence, uncomplicated Assessment & Plan Estimated LOS: days Remigio Henry MD Sep 27, 2017 17:46
[2017-09-27 18:00] VITALS: BP 161/90; PULSE 82; RESP 18; TEMP 97.6; O2SAT 95
--- NOTE | 2017-09-27 18:29 | MB ---
cc: AYAN COFFMAN MD DATE OF CONSULTATION 09/27/2017 REASON FOR CONSULTATION (The patient with a history of benzo opiate use disorder, presented today with seizure-like activity that helicat activated, given Ativan 2 milligrams IM. Please evaluate and assess for seizures versus pseudo seizures. Thank you ). HISTORY OF PRESENT ILLNESS The patient was admitted on the general psychiatry [facility]. Ms. Humaira Tobar is a 62-year-old female with past medical history of depression, substance use, history of benzos, prescription opiates, alcohol, polysubstance use disorder of IV heroin and cocaine with past medical history of chronic degenerative disk disease, osteoarthritis. She was admitted initially to the general psychiatry [facility] for suicidal ideation and worsening depression, admitted for inpatient psychiatry for evaluation and management. The patient was witnessed with a seizure-like activity thus she was transferred to the psychiatry medical unit. During the day the encounter with registered nurse on the bedside. The patient states that she has history of, "Petit mal seizure" but she is unable to describe those seizures to me. She states that this happened when she was younger in her teenage. She denies any family history of seizures. Denies history of meningitis, encephalitis or head trauma. No history of stroke. REVIEW OF SYSTEMS A 12 point review of systems is negative except for what is stated in the history of present illness. PAST MEDICAL HISTORY 1. Degenerative disc disease. 2. Chronic pain. 3. Substance abuse, benzos, opiates, alcohol use disorder, polysubstance use disorder, IV heroin and cocaine. ALLERGIES No known allergies. SOCIAL HISTORY Polysubstance and ethanol abuse. FAMILY HISTORY Noncontributory. Grandfather with suicide. PHYSICAL EXAMINATION GENERAL: The patient is awake, alert, oriented to person and place not to time. Poor historian not in acute distress. HEENT: Atraumatic, normocephalic. Intact hearing and intact vision. CARDIOVASCULAR: Regular rate and rhythm. RESPIRATORY: Clear to auscultation. No wheezes. GASTROINTESTINAL: Soft abdomen. No tenderness. NEUROLOGIC: Awake, alert, oriented to person and not to place, not to time, confused. No dysarthria. No dysphagia. Intact naming. Intact repetition. Cranial nerves II-XII are grossly intact. Motor examination 5/5 bilateral upper extremity and lower extremity. Normal tone. No abnormal movement. Finger- to-nose is intact. LABORATORY DATA WBC 6.4, hemoglobin 11.9. Chemistry, normal sodium, potassium. Random glucose 138. Calcium 8.4. Albumin 2.8. Free T3 is low at 1.65. Thyroxine is normal at 6.3. DIAGNOSTIC IMPRESSION 1. Possible seizure. - Likely withdrawal, etiology is withdrawal from benzos / opiates, Wellbutrin. 2. Polysubstance abuse. Ethanol dependence. 3. Chronic back pain. 4. Nicotine dependence. PLAN 1. Neurological checks q.4h. 2. EEG. 3. Head CT scan. 4. CIWA protocol. 5. Seizure precautions. 6. Deep venous thrombosis prophylaxis. 7. Continue supportive medical therapy. Thank you for the opportunity to participate in the care of your patient. MD HAILEY Rogers/KK /3:43 PM /5:51 PM JESUS
--- NOTE | 2017-09-27 18:44 | RADRPT ---
EXAM DATE/TIME: 09/27/2017 18:28 [facility] COMPARISON: No previous studies available for comparison. INDICATIONS : Altered mental status. RADIATION DOSE: 53.47 CTDIvol (mGy) MEDICAL HISTORY : None SURGICAL HISTORY : None. ENCOUNTER: Initial ACUITY: 1 day PAIN SCALE: 0/10 LOCATION: cranial TECHNIQUE: Multiple contiguous axial images were obtained of the head. Using automated exposure control and adj ustment of the mA and/or kV according to patient size, radiation dose was kept as low as reasonably a chievable to obtain optimal diagnostic quality images. DICOM format image data is available electro nically for review and comparison. FINDINGS: There is an area of low attenuation in the left basal ganglia and extending into the white matter aaron sure about 3.1 cm in diameter. Differential diagnosis includes infarct and tumor. Further evaluation with MRI of the brain with contrast recommended. No midline shift. No hydrocephalus. No acute bony ab normalities. Sinuses clear. CONCLUSION: 1. Low-attenuation 3.1 cm mass in the left basal ganglia extending cephalad. Further evaluation with MRI brain with and without contrast is recommended. There is mild localized mass effect. No hemorrhag e. Kris Matos MD on September 27, 2017 at 18:39 Board Certified Radiologist. This report was verified electronically.
--- NOTE | 2017-09-27 19:53 | MG ---
cc: JENNIFER GALVAN M.D. Lab No: Date: 09/27/2017 Age: Sex: F Race: REQUESTING PHYSICIAN Dr. Valenzuela INTRODUCTION EEG was obtained on this 62-year-old patient with hallucinations, depression, anxiety. DESCRIPTION The patient is described as awake. There is a lot of theta with some alpha rhythms and beta activity. There are artifactual rhythms intermixed throughout. There is questionable though probable more theta on the left than right. There are some sharp waves but no sharp discharges. Hyperventilation was not performed. There are delta rhythms bilaterally intermittently and photic stimulation showed minor driving response. INTERPRETATION Abnormal EEG because of a diffuse slowing possibly left worse than right. The findings suggest bilateral diffuse nonspecific abnormalities possibly focal on the left. No epileptiform discharge present. MD MARCY Fields/KK /6:58 PM /7:46 PM
[2017-09-27] MEDS: REMOVE OLD NICOTINE PATCH T-DERMAL SCH (20:34)
[2017-09-27] MEDS: MIRTAZAPINE 15 MG TAB PO SCH (20:52)
[2017-09-27] MEDS ORDERED: POTASSIUM CHLORIDE 10 MEQ CONTROLLED RELEASE TAB PO ONE (21:00)
[2017-09-27] MEDS: LORazepam 1 MG TAB PO PRN (21:09)
[2017-09-28] MEDS: MORPHINE SULFATE 15 MG CONTROLLED RELEASE TAB PO SCH ×3 (05:36→21:00)
[2017-09-28 05:50] VITALS: BP 137/82; PULSE 82; RESP 16; TEMP 98.2
[2017-09-28] MEDS: NICOTINE 21 MG/24 HR PATCH T-DERMAL SCH (08:29)
[2017-09-28] MEDS: SERTRALINE HCL 50 MG TAB PO SCH (08:29)
[2017-09-28 09:11] LABS: CALCIUM 9.1 MG/DL (8.5-10.1); CREATININE 0.71 MG/DL (0.50-1.00); MAGNESIUM 2.1 MG/DL (1.5-2.5)
--- NOTE | 2017-09-28 10:18 | HHI.PR ---
Subjective Remarks no overnight issues cachetic, states she has been losing weight , 10lbs in 1 month denies dysphagia, odynophagia, early satiey loss of appetite no routine checkup out pt as no pcp no family hx of med issues pt does not remember having seizures previous day was seen by neuro MRI pending denies any PMH denies any PSH no PCP no family hx of med problems smokes 2 packs a day, drinks 5 beers a day, admitted to [facility] for aboout 2 days for DT, transferred to psych here on 09/22 Objective Vitals Vital Signs Date Time Temp Pulse Resp B/P (MAP) Pulse Ox O2 Delivery O2 Flow Rate FiO2 09/28/17 05:50 98.2 82 16 137/82 (100) 09/27/17 18:00 97.6 82 18 161/90 (113) 95 I/O 09/27/17 09/27/17 09/27/17 09/28/17 09/28/17 09/28/17 07:00 15:00 23:00 07:00 15:00 23:00 Intake Total 120 ml 0 ml Balance 120 ml 0 ml Intake Oral 120 ml 0 ml # Voids 1 Result Diagram: 09/27/17 1529 09/28/17 0821 Objective Remarks awake, alert, very pleasant lady, not in distress, multiple books at bedside keeping herself occupied skin is normal temp, no erythema, has small scab at left LE barfield heart rate is regular, no murmur lung sounds are diminshed at bases but equal air entry, no wheezing or rales abdomen is soft and non tender, no rebound extremities without any calf asymmetry or edema, non tender neuro: normal speech, no focal deficit, intact cranial nerves A/P Problem List: (1) Delirium tremens ICD Code: F10.231 - Alcohol dependence with withdrawal delirium (2) Chronic back pain ICD Code: M54.9 - Dorsalgia, unspecified; G89.29 - Other chronic pain (3) Opioid dependence ICD Code: F11.20 - Opioid dependence, uncomplicated (4) Depression ICD Code: F32.9 - Major depressive disorder, single episode, unspecified Assessment and Plan Impression/Plan: DT- resolved seizures- while in hospital on 09/27/17- doubt DT since she has been in hospital since 2 days prior to 1/[address]- MRI pending ; neurology notes reviewed weight loss- strongly advised outpatient mammogram, colonoscopy, pap smear- pt never had any workup- discussed with patient in detail that her seizures likely are not withdrawal and may have something to do with underlying malignancy. hypokalemia- replace 50meq po Discharge Planning per psychiatry Sarbjit Sanchez MD Sep 28, 2017 10:18
--- NOTE | 2017-09-28 10:38 | HHI.PYPN ---
Subjective Remarks Patient seen for follow-up, chart reviewed. Discussion she staff reported the patient had been compliant medications noted to be somewhat blunted affect today. Patient was found lying in hospital bed, cooperative patient states that her weekend went "so-so" reports severely well last evening with no change in mood as a has been "good" denies feeling depressed or having any suicidal ideations. Patient says her appetite is also "so-so". Patient states that she was unaware of seizure activity yesterday and had been transferred to a different unit although she noticed that she was in a different room. Patient states she has no recollection of seizures. Patient aware that she had CT of the head done and has plans for head MRI for today. Patient denies any physical symptoms at this time, CIWA scores have been low. Review of Systems Except as stated in HPI: all other systems reviewed are Neg Mental Status Examination Appearance: Appropriate Consciousness: Lethargic Orientation: x4, Person, Place, Date/Time Motor Activity: Normal gait Speech: Unremarkable Language: Adequate Fund of Knowledge: Inadequate Attention and Concentration: Adequate Memory: Unremarkable Mood: Appropriate Affect: Appropriate Thought Process & Associations: Linear, Other Thought Content: Appropriate Hallucination Type: None Delusion Type: None Suicidal Ideation: No Suicidal Plan: No Suicidal Intention: No Homicidal Ideation: No Homicidal Plan: No Homicidal Intention: No Insight: Fair Judgment: Impulsive Results Labs Labs reviewed Test 09/27/17 15:29 09/28/17 08:21 White Blood Count 9.7 TH/MM3 Red Blood Count 4.66 MIL/MM3 Hemoglobin 14.4 GM/DL Hematocrit 42.9 % Mean Corpuscular Volume 92.0 FL Mean Corpuscular Hemoglobin 30.8 PG Mean Corpuscular Hemoglobin Concent 33.5 % Red Cell Distribution Width 13.9 % Platelet Count 297 TH/MM3 Mean Platelet Volume 8.4 FL Neutrophils (%) (Auto) 73.7 % Lymphocytes (%) (Auto) 15.2 % Monocytes (%) (Auto) 9.8 % Eosinophils (%) (Auto) 0.7 % Basophils (%) (Auto) 0.6 % Neutrophils # (Auto) 7.2 TH/MM3 Lymphocytes # (Auto) 1.5 TH/MM3 Monocytes # (Auto) 1.0 TH/MM3 Eosinophils # (Auto) 0.1 TH/MM3 Basophils # (Auto) 0.1 TH/MM3 CBC Comment DIFF FINAL Differential Comment Blood Urea Nitrogen 9 MG/DL 9 MG/DL Creatinine 0.60 MG/DL 0.71 MG/DL Random Glucose 90 MG/DL 137 MG/DL Calcium Level 9.0 MG/DL 9.1 MG/DL Magnesium Level 2.2 MG/DL 2.1 MG/DL Sodium Level 142 MEQ/L 142 MEQ/L Potassium Level 3.4 MEQ/L 3.4 MEQ/L Chloride Level 114 MEQ/L 113 MEQ/L Carbon Dioxide Level 20.4 MEQ/L 21.0 MEQ/L Anion Gap 8 MEQ/L 8 MEQ/L Estimat Glomerular Filtration Rate 102 ML/MIN 84 ML/MIN Total Creatine Kinase 89 U/L 57 U/L Vitals/IOs Vital Signs Date Time Temp Pulse Resp B/P (MAP) Pulse Ox O2 Delivery O2 Flow Rate FiO2 09/28/17 05:50 98.2 82 16 137/82 (100) 09/27/17 18:00 95 Intake and Output 09/28/17 09/28/17 09/29/17 08:00 16:00 00:00 Intake Total 0 ml Balance 0 ml Assessment & Plan Problem List: (1) Depression ICD Codes: F32.9 - Major depressive disorder, single episode, unspecified (2) Alcohol use disorder ICD Codes: F10.99 - Alcohol use, unspecified with unspecified alcohol-induced disorder (3) Opioid dependence ICD Codes: F11.20 - Opioid dependence, uncomplicated Assessment & Plan Patient at this time noted to have improvement of mood, denies feeling depressed or having suicidal ideations along with improved appetite. Patient unaware of recent seizure activity yesterday along was transferred to the medical/psychiatry unit. We'll continue current treatment, continue CIWA protocol. Neurology consult appreciated, will continue workup and recommendations as per neurology and primary medical team. Patient scheduled for brain MRI today as recent CT scan of the head showed 3.1cm mass (see CT report). Discharge planning in progress. Justification for Cont. Inpt. At risk for further decompensation if at lower level of care Discharge Planning To return back to residence once medically/psychiatrically cleared Remigio Henry MD Sep 28, 2017 10:38
[2017-09-28] MEDS ORDERED: POTASSIUM CHLORIDE 25 MEQ EFFERVESCENT TAB PO ONE (10:45)
[2017-09-28 18:10] VITALS: BP 157/97; PULSE 99; RESP 16; TEMP 97.4; O2SAT 95
[2017-09-28] MEDS ORDERED: GADODIAMIDE PF 287 MG/ML 10 ML VIAL (for RAD MRI) IVCONTRAST ONE (18:10)
--- NOTE | 2017-09-28 18:15 | RADRPT ---
EXAM DATE/TIME: 09/28/2017 17:04 [facility] COMPARISON: CT BRAIN W/O CONTRAST, September 27, 2017, 18:28. INDICATIONS : Mass. CONTRAST: 8 cc Omniscan (gadodiamide) IV MEDICAL HISTORY : Seizures. DDD. SURGICAL HISTORY : None. ENCOUNTER: Subsequent ACUITY: 2 day PAIN SCORE: 0/10 LOCATION: head. TECHNIQUE: Multiplanar, multisequence MRI of the brain was performed both prior to and following the administrat ion of paramagnetic contrast. FINDINGS: CEREBRUM: The ventricles are normal for age. Low density area in the left thalamic region identified on CT albin esponds to an area of increased T2 flair signal intensity with some central diffusion restriction. Th is area does not show any enhancement, however. No extraaxial fluid collections are seen. The pitui tary gland and suprasellar cistern are normal in configuration. WHITE MATTER: Mild periventricular and scattered deep white matter tract there is a increased T2 and flair signal i ntensity. There also subcortical areas of white matter changes in the occiput bilaterally as well as the posterior left parietal lobe. POSTERIOR FOSSA: The cerebellum and brainstem are intact. The 4th ventricle is midline. The cerebellopontine angle is unremarkable. The cerebellar tonsils are normal in position. DIFFUSION IMAGING: True diffusion restriction identified in the central portion of the lesion identified in the left bharat lamus. EXTRACRANIAL: The visualized portions of the orbits and paranasal sinuses are unremarkable. POST-CONTRAST: No abnormal areas of parenchymal or dural enhancement. No evidence of blood-brain barrier breakdown. Specifically, no significant enhancement in the masslike lesion in the left thalamus. CONCLUSION: 1. Area of diminished attenuation in the left basal ganglia/thalamus corresponds to a well-circumscri bed region of increased T2 flair signal intensity with true diffusion restriction centrally. 2. While the lesion demonstrates mass effect, there is no significant enhancement. Findings could rep resent evolving infarct but the regional mass effect is somewhat concerning. The lesion could represe nt a low-grade neoplasm such as lymphoma. 3. Periventricular, deep white matter tracts and posterior subcortical white matter changes as above. Sherman Snow MD on September 28, 2017 at 18:05 Board Certified Radiologist. This report was verified electronically.
[2017-09-28] MEDS: REMOVE OLD NICOTINE PATCH T-DERMAL SCH (21:00)
[2017-09-28] MEDS: MIRTAZAPINE 15 MG TAB PO SCH (21:00)
[2017-09-29] MEDS: MORPHINE SULFATE 15 MG CONTROLLED RELEASE TAB PO SCH ×3 (05:33→21:13)
[2017-09-29 05:51] VITALS: BP 158/89; PULSE 73; RESP 16; TEMP 97.9; O2SAT 95
[2017-09-29] MEDS: NICOTINE 21 MG/24 HR PATCH T-DERMAL SCH (09:10)
[2017-09-29] MEDS: SERTRALINE HCL 50 MG TAB PO SCH (09:10)
[2017-09-29] MEDS: LORazepam 2 MG TAB PO PRN (09:15)
--- NOTE | 2017-09-29 10:12 | HHI.PR ---
Subjective Remarks follow up brain lesion and seizures denies any overnight issues explained of her MRI findings and that she is going to MRA studies ordered by neurologist no further seizures does have chronic smoker's cough Objective Vitals Vital Signs Date Time Temp Pulse Resp B/P (MAP) Pulse Ox O2 Delivery O2 Flow Rate FiO2 09/29/17 05:51 97.9 73 16 158/89 (112) 95 09/28/17 18:10 97.4 99 16 157/97 (117) 95 I/O 09/28/17 09/28/17 09/28/17 09/29/17 09/29/17 09/29/17 07:00 15:00 23:00 07:00 15:00 23:00 Intake Total 0 ml 300 ml 120 ml 0 ml 120 ml Balance 0 ml 300 ml 120 ml 0 ml 120 ml Intake Oral 0 ml 300 ml 120 ml 0 ml 120 ml # Voids 1 1 1 1 Result Diagram: 09/27/17 1529 09/28/17 0821 Objective Remarks awake, alert, very pleasant lady, cachetic skin - normal temp, dry scab on lower extremity heart rate is regular no murmur, no jvd lung sounds are equal bilaterally, decreased but no active wheezing abdomen is soft and non tender, thin, cachetic extremities with no calf asymmetry or edema, has muscle atrophy neuro- awake, alert, oriented, no focal deficit, normal speech A/P Problem List: (1) Delirium tremens ICD Code: F10.231 - Alcohol dependence with withdrawal delirium (2) Chronic back pain ICD Code: M54.9 - Dorsalgia, unspecified; G89.29 - Other chronic pain (3) Opioid dependence ICD Code: F11.20 - Opioid dependence, uncomplicated (4) Depression ICD Code: F32.9 - Major depressive disorder, single episode, unspecified Assessment and Plan Impression/ Plan: DT- resolved seizures- while in hospital on 09/27/17- doubt DT or any withdrawal since she has been in hospital since 2 days prior to 09/22 and receiving prophylactic meds abnormal head CT- MRI report reviewed, evolving infarct vs mass- likely the latter from history and exam. MRA ordered per neurologist - pending- will follow up weight loss- strongly advised outpatient mammogram, colonoscopy, pap smear- pt never had any workup- discussed with patient in detail hypokalemia- replaced pt is cleared by psychaitry this afternoon will admit her to medicine service for further workup of her seizures/ possible brain mass will follow up neurology recs this pm after MRA DVT prophylaxis with ambulation Discharge Planning cleared by psychiatry, will be admitted to medical service Sarbjit Sanchez MD Sep 29, 2017 10:12
[2017-09-29] MEDS ORDERED: GADODIAMIDE PF 287 MG/ML 20 ML VIAL (for RAD MRI) IVCONTRAST ONE (11:00)
--- NOTE | 2017-09-29 11:13 | RADRPT ---
EXAM DATE/TIME: 09/29/2017 10:39 [facility] COMPARISON: No previous studies available for comparison. INDICATIONS : CVA. MEDICAL HISTORY : Seizures. DDD. SURGICAL HISTORY : None. ENCOUNTER: Subsequent ACUITY: 3 day PAIN SCORE: 0/10 LOCATION: head. Please note a normal MRA of the brain does not entirely exclude the possibility of a small aneurysm, nor the possibility of distal intracranial vessel disease. TECHNIQUE: 3D time of flight MRA was performed. Source images, multiplanar STS MIP, and 3D volume MIP reconstru ctions were reviewed. FINDINGS: Moderate intracranial atherosclerotic vascular disease is evident. There is no major branch vessel o cclusion. CONCLUSION: Negative for major branch vessel occlusion. Moderate atherosclerotic vascular changes. bNa Escalera MD FACR on September 29, 2017 at 11:09 Board Certified Radiologist. This report was verified electronically.
--- NOTE | 2017-09-29 11:32 | RADRPT ---
EXAM DATE/TIME: 09/29/2017 10:39 [facility] COMPARISON: No previous studies available for comparison. INDICATIONS : Stenosis. CVA CONTRAST: 20 cc Omniscan (gadodiamide) IV MEDICAL HISTORY : Seizures. DDD. SURGICAL HISTORY : None. ENCOUNTER: Subsequent ACUITY: 3 day PAIN SCORE: 0/10 LOCATION: neck. Percent stenosis is calculated using the diameter of the stenotic region over the diameter of the nor mal distal internal carotid artery. TECHNIQUE: Bolus infused MRA of the extracranial circulation was performed using a neurovascular coil. Post pro cessing was performed including rotating subvolume maximum intensity projections of each carotid jere ry, rotating full volume maximum intensity projections of both carotid arteries, sagittal and coronal sliding thin slab reformations of each carotid artery, and left oblique sliding thin slab reformatio n through the aortic arch to include the origin of the arch branch vessels. FINDINGS: AORTIC ARCH: There is a three vessel origin of the great vessels from the aorta. No evidence of ostial narrowing. RIGHT CAROTID: The common carotid artery is intact. The carotid bulb has a normal configuration without ulceration or narrowing. The internal carotid artery lumen is smooth without stenosis. The external carotid ar ottoniel is intact. LEFT CAROTID: The common carotid artery is intact. The carotid bulb has a normal configuration without ulceration or narrowing. The internal carotid artery lumen is smooth without stenosis. The external carotid ar ottoniel is intact. VERTEBRALS: The vertebral arteries have a symmetric diameter. No stenotic lesions are seen. CONCLUSION: No carotid stenosis. Remigio Aguilera MD on September 29, 2017 at 11:26 Board Certified Radiologist. This report was verified electronically.
[2017-09-29] MEDS ORDERED: MIRTA15 PO (12:15)
[2017-09-29] MEDS ORDERED: ZOLO50TA PO (12:15)
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
--- NOTE | 2017-09-29 13:38 | HHI.PR ---
Review/Management Diagnosis 1. Possible seizures - Likely withdrawal, etiology is withdrawal from benzos / opiates, Wellbutrin. 2. Polysubstance abuse. Ethanol dependence. 3. Chronic back pain. 4. Nicotine dependence 5. Abnormal MRI finding ? mass lesion. Plan 1. Neurological checks q.4h. 2. Oncology consult, recommendations are appreciated 3. [facility] protocol. 4. Seizure precautions. 5. Deep venous thrombosis prophylaxis. 6. Continue supportive medical therapy. 7. Dr. Orville Whitaker, neurology will follow up Thank you for the opportunity to participate in the care of your patient. Diagnosis/Plan: Subjective Subjective Comments No acute events reported MRI brain with evidence of an abnormal lesion ? mass, less likely ischemia MRA head & neck were unremarkable EEG with evidence of slowing, left greater than right Active Medications Current Medications Medications (Trade) Dose Ordered Sig/Alicia Route Start Time Stop Time Status Last Admin (Atarax) 50 mg Q6H PRN PO 09/22/17 19:15 09/25/17 03:33 (Tylenol) 650 mg Q4H PRN PO 09/22/17 19:15 09/25/17 09:38 (Milk Of Magnesia Liq) 30 ml DAILY PRN PO 09/22/17 19:15 (Mag-Al Plus Susp Liq) 30 ml Q6H PRN PO 09/22/17 19:15 (Habitrol 21 Mg Patch.24 Hr) 1 patch DAILY T-DERMAL 09/23/17 09:00 09/29/17 09:10 Miscellaneous Information 1 HS T-DERMAL 09/22/17 21:00 09/28/17 21:00 (Ativan) 1 mg Q4H PRN PO 09/22/17 21:00 09/27/17 21:09 (Ativan Inj) 1 mg Q4H PRN IV PUSH 09/22/17 21:00 (Ativan) 2 mg Q2H PRN PO 09/22/17 21:00 09/29/17 09:15 (Ativan Inj) 2 mg Q2H PRN IV PUSH 09/22/17 21:00 (Ativan Inj) 2 mg Q1H PRN IV PUSH 09/22/17 21:00 (Ativan Inj) 2 mg Q15M PRN IV PUSH 09/22/17 21:00 09/27/17 09:30 (Haldol Inj) 2 mg Q15M PRN IM 09/22/17 21:00 (Romazicon Inj) 0.2 mg Q1M PRN IV PUSH 09/22/17 21:00 (Zoloft) 50 mg DAILY PO 09/23/17 15:30 09/29/17 09:10 (Oramorph Sr) 15 mg Q8HR PO 09/23/17 22:00 09/29/17 05:33 (Remeron) 15 mg HS PO 09/24/17 21:00 09/28/17 21:00 (Ativan Inj) 1 mg Q15M PRN IV PUSH 09/27/17 13:15 Allergies Allergies Coded Allergies No Known Allergies (Verified Allergy, Unknown, 09/22/17) Review of Systems All other ROS: ROS reviewed as documented in chart Exam I&O / VS 09/29/17 09/29/17 09/30/17 15:00 23:00 07:00 Intake Total 240 ml Balance 240 ml Intake Oral 240 ml Vital Signs Date Time Temp Pulse Resp B/P (MAP) Pulse Ox O2 Delivery O2 Flow Rate FiO2 09/29/17 05:51 97.9 73 16 158/89 (112) 95 09/28/17 18:10 97.4 99 16 157/97 (117) 95 Objective Radiology Results Last 72 hours Impressions Neck Magnetic Resonance Angiography 09/29/17 0000 Signed Impressions: Service Date/Time: Friday, September 29, 2017 10:39 - CONCLUSION: No carotid stenosis. Remigio Aguilera MD Head Magnetic Resonance Angiography 09/29/17 0000 Signed Impressions: Service Date/Time: Friday, September 29, 2017 10:39 - CONCLUSION: Negative for major branch vessel occlusion. Moderate atherosclerotic vascular changes. Nba Escalera MD FACR Brain MRI 09/28/17 0000 Signed Impressions: Service Date/Time: Thursday, September 28, 2017 17:04 - CONCLUSION: 1. Area of diminished attenuation in the left basal ganglia/thalamus corresponds to a well-circumscribed region of increased T2 flair signal intensity with true diffusion restriction centrally. 2. While the lesion demonstrates mass effect, there is no significant enhancement. Findings could represent evolving infarct but the regional mass effect is somewhat concerning. The lesion could represent a low-grade neoplasm such as lymphoma. 3. Periventricular, deep white matter tracts and posterior subcortical white matter changes as above. Sherman Snow MD Head CT 09/27/17 0000 Signed Impressions: Service Date/Time: Wednesday, September 27, 2017 18:28 - CONCLUSION: 1. Low-attenuation 3.1 cm mass in the left basal ganglia extending cephalad. Further evaluation with MRI brain with and without contrast is recommended. There is mild localized mass effect. No hemorrhage. Kris Matos MD Chest X-Ray 09/27/17 0000 Signed Impressions: Service Date/Time: Wednesday, September 27, 2017 13:39 - CONCLUSION: Moderate peribronchial thickening. Nba Escalera MD FACR Zia Sorenson MD Sep 29, 2017 13:38
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
--- NOTE | 2017-09-29 16:30 | PD.TTN ---
Patient Problems 1. Discharge planning 2. Medication compliance 3. Knowledge deficit 4. Lack of coping skills Progress Toward Goals Provider Present: Dr. Navneet Henry Provider Input: 09/29 patient may have cancer and is in need for medical care but psychiatricly cleared Psychiatric Counselors Present: Kandi Diaz LCSW Psych Therapist Input: 09/29 patient has no active insurance, will call family, patient is doing better and would like to go home Group Spec/RT/OT/ANGELO Present: Dennys Smith OT Group Spec/RT/OT/ANGELO Input: 09/29 pt does not leave her room, no participation Kandi Diaz LCSW Sep 29, 2017 16:30
[2017-09-29 18:19] VITALS: BP 125/95; PULSE 69; RESP 16; TEMP 98.3
[2017-09-29] MEDS: REMOVE OLD NICOTINE PATCH T-DERMAL SCH (21:00)
[2017-09-29] MEDS: MIRTAZAPINE 15 MG TAB PO SCH (21:12)
[2017-09-30 05:47] VITALS: BP 118/58; PULSE 63; RESP 17; TEMP 98.5; O2SAT 95
[2017-09-30] MEDS: MORPHINE SULFATE 15 MG CONTROLLED RELEASE TAB PO SCH ×3 (06:24→20:15)
--- NOTE | 2017-09-30 08:54 | HHI.PYPN ---
Subjective Remarks Patient seen for follow-up, chart reviewed. Patient was discharged yesterday from her service but continues to remain on the unit as patient weighed bed availability on the medical floor. Patient continues to report feeling "alright " denying any depressive manic or psychotic symptoms at this time. Patient denies any suicidal homicidal ideations or delusions. Review of Systems Except as stated in HPI: all other systems reviewed are Neg Mental Status Examination Appearance: Appropriate Consciousness: Lethargic Orientation: x4, Person, Place, Date/Time Motor Activity: Normal gait Speech: Unremarkable Language: Adequate Fund of Knowledge: Inadequate Attention and Concentration: Adequate Memory: Unremarkable Mood: Appropriate Affect: Appropriate Thought Process & Associations: Intact, Linear, Other Thought Content: Appropriate Hallucination Type: None Delusion Type: None Suicidal Ideation: No Suicidal Plan: No Suicidal Intention: No Homicidal Ideation: No Homicidal Plan: No Homicidal Intention: No Insight: Fair Judgment: Impulsive Results Vitals/IOs Vital Signs Date Time Temp Pulse Resp B/P (MAP) Pulse Ox O2 Delivery O2 Flow Rate FiO2 09/30/17 05:47 98.5 63 17 118/58 (78) 95 Intake and Output 09/30/17 09/30/17 10/01/17 08:00 16:00 00:00 Intake Total 0 ml Balance 0 ml Assessment & Plan Problem List: (1) Depression ICD Codes: F32.9 - Major depressive disorder, single episode, unspecified (2) Alcohol use disorder ICD Codes: F10.99 - Alcohol use, unspecified with unspecified alcohol-induced disorder (3) Opioid dependence ICD Codes: F11.20 - Opioid dependence, uncomplicated Assessment & Plan Patient continues to wait for transfer to medical floor as patient is discharged from psychiatric services at this time. Patient to continue recommendations as per primary medical team. Justification for Cont. Inpt. At risk for further decompensation if at lower level of care Discharge Planning Patient to be transferred to medical floor when bed available. Remigio Henry MD Sep 30, 2017 08:54
--- NOTE | 2017-09-30 09:25 | HHI.PR ---
Subjective Remarks Pt has no complaints. states she doesn't eat much because they "give me too much food". Denies any nausea or vomiting. Ate her muffin and half of her eggs. Denies any pain, denies any weakness or loss of balance. Discussed w RN, pt waiting for a medical bed due to MRI findings. No seizures reported Objective Vitals Vital Signs Date Time Temp Pulse Resp B/P (MAP) Pulse Ox O2 Delivery O2 Flow Rate FiO2 09/30/17 05:47 98.5 63 17 118/58 (78) 95 09/29/17 18:19 98.3 69 16 125/95 (105) I/O 09/29/17 09/29/17 09/29/17 09/30/17 09/30/17 09/30/17 07:00 15:00 23:00 07:00 15:00 23:00 Intake Total 0 ml 240 ml 720 ml 240 ml Balance 0 ml 240 ml 720 ml 240 ml Intake Oral 0 ml 240 ml 720 ml 240 ml # Voids 1 2 # Bowel Movements 0 Result Diagram: 09/27/17 1529 09/28/17 0821 Imaging Last Impressions Neck Magnetic Resonance Angiography 09/29/17 0000 Signed Impressions: Service Date/Time: Friday, September 29, 2017 10:39 - CONCLUSION: No carotid stenosis. Remigio Aguilera MD Head Magnetic Resonance Angiography 09/29/17 0000 Signed Impressions: Service Date/Time: Friday, September 29, 2017 10:39 - CONCLUSION: Negative for major branch vessel occlusion. Moderate atherosclerotic vascular changes. Nba Escalera MD FACR Brain MRI 09/28/17 0000 Signed Impressions: Service Date/Time: Thursday, September 28, 2017 17:04 - CONCLUSION: 1. Area of diminished attenuation in the left basal ganglia/thalamus corresponds to a well-circumscribed region of increased T2 flair signal intensity with true diffusion restriction centrally. 2. While the lesion demonstrates mass effect, there is no significant enhancement. Findings could represent evolving infarct but the regional mass effect is somewhat concerning. The lesion could represent a low-grade neoplasm such as lymphoma. 3. Periventricular, deep white matter tracts and posterior subcortical white matter changes as above. Sherman Snow MD Head CT 09/27/17 0000 Signed Impressions: Service Date/Time: Wednesday, September 27, 2017 18:28 - CONCLUSION: 1. Low-attenuation 3.1 cm mass in the left basal ganglia extending cephalad. Further evaluation with MRI brain with and without contrast is recommended. There is mild localized mass effect. No hemorrhage. Kris Matos MD Chest X-Ray 09/27/17 0000 Signed Impressions: Service Date/Time: Wednesday, September 27, 2017 13:39 - CONCLUSION: Moderate peribronchial thickening. Nba Escalera MD FACR Objective Remarks General: thin female, smiling, laying in bed comfortably. HEENT: throat w no deviation, EOMI Lungs are clear w no wheezing CVS: RRR w no murmurs abdomen: soft NT no guarding EXT: moves all ext w no difficulties. A/P Problem List: (1) Delirium tremens ICD Code: F10.231 - Alcohol dependence with withdrawal delirium (2) Chronic back pain ICD Code: M54.9 - Dorsalgia, unspecified; G89.29 - Other chronic pain (3) Opioid dependence ICD Code: F11.20 - Opioid dependence, uncomplicated (4) Depression ICD Code: F32.9 - Major depressive disorder, single episode, unspecified Assessment and Plan (1) Delirium tremens (2) Chronic back pain (3) Opioid dependence (4) Depression Assessment and Plan Depression with hallucination: management per psych seizures- while in hospital on 09/27/17- doubt DT since she has been in hospital since 2 days prior to 09/22. [facility] protocol in place abnormal head CT- MRI showed area if diminished attenuation left basal ganglia/ thalamus concerning for lymphoma. Neurology evaluated the pt and recommends med/ onc consultation. I have placed consult for further recs weight loss- 30 pound weight loss in 3 months (reported). Pt has been strongly advised on outpatient mammogram, colonoscopy, pap smear- pt never had any workup. In addition neuro/onc work-up in progress. Pt has been encouraged to eat as she have a very poor appetite. While on the medical floor recommend calorie count to see if she is meeting her caloric needs. hypokalemia- replaced. repeat in AM. Chronic back pain/ Opioid dependence Narcotics must be continued to prevent narcotic withdrawal. Safer modality would be long-acting narcotics. - on MS Contin started at 15 mg by mouth every 8 hours. Wean as tolerated. Discharge Planning Transfer to medical pending. Marcelle Pang MD Sep 30, 2017 09:25
[2017-09-30] MEDS: SERTRALINE HCL 50 MG TAB PO SCH (10:03)
[2017-09-30] MEDS: NICOTINE 21 MG/24 HR PATCH T-DERMAL SCH (10:06)
[2017-09-30] MEDS: hydrOXYzine HCL 50 MG TAB PO PRN ×2 (18:05→23:49)
[2017-09-30 19:11] VITALS: BP 101/61; PULSE 65; RESP 17; TEMP 99; O2SAT 92
[2017-09-30] MEDS: MIRTAZAPINE 15 MG TAB PO SCH (20:14)
[2017-09-30] MEDS: REMOVE OLD NICOTINE PATCH T-DERMAL SCH (20:15)
[2017-09-30] MEDS: ACETAMINOPHEN 325 MG TAB PO PRN (23:50)
[2017-10-01] MEDS: MORPHINE SULFATE 15 MG CONTROLLED RELEASE TAB PO SCH ×3 (05:37→21:40)
[2017-10-01 06:11] VITALS: BP 124/70; PULSE 96; RESP 18; TEMP 98.2
[2017-10-01 07:59] LABS: BICARBONATE 24.1 MEQ/L (21.0-32.0); CALCIUM 8.9 MG/DL (8.5-10.1); CREATININE 0.58 MG/DL (0.50-1.00)
--- NOTE | 2017-10-01 08:43 | HHI.PR ---
Subjective Remarks In bed appears in not acutely distressed. Denies any headaches change in vision , more deficit. Says she is eating better, appetite is fairly well. No nausea or vomiting no diarrhea or constipation. Objective Vitals Vital Signs Date Time Temp Pulse Resp B/P (MAP) Pulse Ox O2 Delivery O2 Flow Rate FiO2 10/01/17 06:11 98.2 96 18 124/70 (88) 09/30/17 19:11 99.0 65 17 101/61 (74) 92 I/O 09/30/17 09/30/17 09/30/17 10/01/17 10/01/17 10/01/17 07:00 15:00 23:00 07:00 15:00 23:00 Intake Total 240 ml 480 ml 720 ml Balance 240 ml 480 ml 720 ml Intake Oral 240 ml 480 ml 720 ml # Voids 2 4 3 # Bowel Movements 0 Result Diagram: 09/27/17 1529 10/01/17 0700 Imaging Last Impressions Neck Magnetic Resonance Angiography 09/29/17 0000 Signed Impressions: Service Date/Time: Friday, September 29, 2017 10:39 - CONCLUSION: No carotid stenosis. Remigio Aguilera MD Head Magnetic Resonance Angiography 09/29/17 0000 Signed Impressions: Service Date/Time: Friday, September 29, 2017 10:39 - CONCLUSION: Negative for major branch vessel occlusion. Moderate atherosclerotic vascular changes. Nba Escalera MD FACR Brain MRI 09/28/17 0000 Signed Impressions: Service Date/Time: Thursday, September 28, 2017 17:04 - CONCLUSION: 1. Area of diminished attenuation in the left basal ganglia/thalamus corresponds to a well-circumscribed region of increased T2 flair signal intensity with true diffusion restriction centrally. 2. While the lesion demonstrates mass effect, there is no significant enhancement. Findings could represent evolving infarct but the regional mass effect is somewhat concerning. The lesion could represent a low-grade neoplasm such as lymphoma. 3. Periventricular, deep white matter tracts and posterior subcortical white matter changes as above. Sherman Snow MD Head CT 09/27/17 0000 Signed Impressions: Service Date/Time: Wednesday, September 27, 2017 18:28 - CONCLUSION: 1. Low-attenuation 3.1 cm mass in the left basal ganglia extending cephalad. Further evaluation with MRI brain with and without contrast is recommended. There is mild localized mass effect. No hemorrhage. Kris Matos MD Chest X-Ray 09/27/17 0000 Signed Impressions: Service Date/Time: Wednesday, September 27, 2017 13:39 - CONCLUSION: Moderate peribronchial thickening. Nba Escalera MD FACR Objective Remarks GENERAL: Cachectic female, laying in bed comfortably. SKIN: Warm and dry. HEAD: Bitemporal wasting, sunken. Atraumatic. Normocephalic. EYES: Pupils equal and round. No scleral icterus. No injection or drainage. CARDIOVASCULAR: Regular rate and rhythm. RESPIRATORY: No accessory muscle use. Clear to auscultation. Breath sounds equal bilaterally. GASTROINTESTINAL: Abdomen soft, scaphoid, non-tender, nondistended. Hepatic and splenic margins not palpable. MUSCULOSKELETAL: Extremities without clubbing, cyanosis, or edema. No obvious deformities. NEUROLOGICAL: Awake and alert. No obvious cranial nerve deficits. Motor grossly within normal limits. Five out of 5 muscle strength in the arms and legs. Normal speech. A/P Problem List: (1) Delirium tremens ICD Code: F10.231 - Alcohol dependence with withdrawal delirium (2) Chronic back pain ICD Code: M54.9 - Dorsalgia, unspecified; G89.29 - Other chronic pain (3) Opioid dependence ICD Code: F11.20 - Opioid dependence, uncomplicated (4) Depression ICD Code: F32.9 - Major depressive disorder, single episode, unspecified Assessment and Plan Depression with hallucination: management per psych Seizures- while in hospital on 09/27/17- doubt DT since she has been in hospital since 2 days prior to 09/22. [facility] protocol in place abnormal head CT- MRI showed area if diminished attenuation left basal ganglia/ thalamus concerning for lymphoma. Neurology evaluated the pt and recommends med/ onc consultation. Consult for further recs Severe protein calorie malnutrition bitemoral waisting sunken , low BMI, muscle waisting. Weight loss- 30 pound weight loss in 3 months (reported). Pt has been strongly advised on outpatient mammogram, colonoscopy, pap smear- pt never had any workup. In addition neuro/onc work-up in progress. Pt has been encouraged to eat as she have a poor appetite. While on the medical floor recommend calorie count to see if she is meeting her caloric needs. Add megace, MVT, ensure to diet Hypokalemia- replaced. repeat in AM. Chronic back pain/ Opioid dependence Narcotics must be continued to prevent narcotic withdrawal. Safer modality would be long-acting narcotics. - on MS Contin started at 15 mg by mouth every 8 hours. Wean as tolerated. Discharge Planning Transfer to medical pending. Discussed with the patient. nurse Terri Reyes MD Oct 01, 2017 08:43
[2017-10-01] MEDS: NICOTINE 21 MG/24 HR PATCH T-DERMAL SCH (09:30)
[2017-10-01] MEDS: SERTRALINE HCL 50 MG TAB PO SCH (09:30)
[2017-10-01] MEDS ORDERED: DIATRIZOATE MEGLUM/DIATRIZOATE SOD 9 ML CUP PO ONE (12:56)
[2017-10-01] MEDS: MULTIVITAMIN TAB PO SCH (13:21)
[2017-10-01] MEDS: MEGESTROL ACETATE SUSP 400 MG/10 ML CUP PO SCH (13:21)
[2017-10-01 14:03] LABS: PROTHROMBIN TIME - PATIENT 10.6 SEC (9.8-11.6)
[2017-10-01] MEDS: hydrOXYzine HCL 50 MG TAB PO PRN ×2 (15:06→21:43)
--- NOTE | 2017-10-01 15:51 | PD.RAD ---
Post Procedure Progress Note Pre Procedure Diagnosis: (1) Delirium tremens Post Procedure Diagnosis: (1) Delirium tremens Procedure Date: Oct 01, 2017 Supervising Radiologist: Enoch Escalera Estimated blood loss: none Anesthesia: Local Plan of Activity Patient to Unit: Nursing Unit Patient Condition: Poor Additional Comments: LP completed without difficulty. Single puncture at L4/L5 20cc of clear csf removed Full dictated report to follow See PACS Report for procedural detail/treatment Enoch Escalera MD Oct 01, 2017 15:51
--- NOTE | 2017-10-01 16:21 | RADRPT ---
EXAM DATE/TIME: 10/01/2017 16:49 [facility] COMPARISON: No previous studies available for comparison. INDICATIONS : Patient with a history of brain mass, suspected lymphoma. MEDICAL HISTORY : History of pneumonia Left arm DVT Sciatica History of disc herniation Chronic back pain Compression fracture Pelvic wing fracture SURGICAL HISTORY : None ENCOUNTER: Initial ACUITY: 3 days PAIN SCORE: 1/10 LOCATION: Headache LUMBAR PUNCTURE TIME: 1535 hours FLUORO TIME: 0.83 minutes IMAGE SERIES: 1 ACCESS LEVEL: L4-5 FLUID: 18 cc of clear CSF was collected and sent to the laboratory for analysis. PROCEDURE : 1. Fluoroscopic guided lumbar puncture. The risks, benefits and alternatives to the procedure were explained and verbal and written consent w as obtained. The site was prepped in sterile fashion. Full sterile technique was used, including ca p, mask, sterile gloves and gown and a large sterile sheet. Hand hygiene and 2% chlorhexidine and/or betadine/alcohol prep was utilized per protocol for cutaneous antisepsis. The skin and subcutaneous tissues were infiltrated with local anesthetic solution. With fluoroscopic guidance the lumbar thecal sac was punctured at the level above. The fluid describ ed above was removed without difficulty. The patient tolerated the procedure well and there were no complications. CONCLUSION: Uncomplicated fluoroscopically guided lumbar puncture. Enoch Escalera MD on October 01, 2017 at 16:18 Board Certified Radiologist. This report was verified electronically.
--- NOTE | 2017-10-01 17:07 | MB ---
cc: NKECHI RON MD DATE OF CONSULTATION: 10/01/2017. REASON FOR CONSULTATION: Lesion noted in the left thalamus on MRI of the brain. TIME OF CONSULTATION: 12:00 p.m. CHIEF COMPLAINT: Ms. Gerardo reports having had episodes of blacking out and shaking movements. She reports she had "seizures". She also reports a thirty weight loss over the past nine months. In addition to this, she reports having a chronic left flank pain which has been progressive over the past three or four months. HISTORY OF PRESENT ILLNESS: Ms. Dyer is a 62-year-old female who is originally from [place]. She recently relocated to [place], [place] with her . 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 She reports being a smoker and reports having smoked up to two packs a day for about thirty years. Ms. Gerardo reports having been unwell with the above-noted symptoms for the past several weeks. She went into [facility]. In the emergency department, she reported depressed feelings as well as suicidal ideation. She tells me the symptoms have since then resolved. At any rate, the [facility] physicians took the opportunity to transfer her to [place] for inpatient care because they felt the patient was a direct threat to herself. Since coming into our hospital, she has not conveyed suicidal ideation. The patient on 09/27/2017 had a witnessed seizure in our facility. She subsequently underwent MRI of the brain after undergoing CT scans of the brain. The MRI of the brain performed on 09/28/2017 indicates area of diminished attenuation involving the left basal ganglia / thalamus corresponding to a well-circumscribed region of increased T2 FLAIR signal intensity with true diffusion restriction. While the lesion demonstrates mass effect, there was no significant enhancement. The findings were thought to represent either an evolving infarct but regional mass effect was somewhat concerning. Differential diagnoses also included low-grade neoplasm such as a lymphoma. The oncology service has been asked to see the patient for further workup and evaluation. In the meantime, the patient has been on treatment with [facility] protocol. She is not presently on any antiplatelet agents. PAST MEDICAL HISTORY: 1. Tobaccoism. 2. Reported history of opioid and benzodiazepine dependence. PAST SURGICAL HISTORY: She denies any surgical interventions. FAMILY HISTORY: She reports her mother in her 80s of advanced age. The father is . He had some form of blood malignancy. ALLERGIES: NO KNOWN DRUG ALLERGIES. SOCIAL HISTORY: She lives at home with her . She is disabled. 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 GYNECOLOGIC HISTORY: 0. She is postmenopausal. HEALTH MAINTENANCE: She has never had a mammogram and has never had a colonoscopy. CURRENT INPATIENT MEDICATIONS: 1. Ativan IV and p.o. per the [facility] protocol. 2. Haloperidol 2 milligrams IM every fifteen minutes as needed. 3. Flumazenil 0.2 milligrams IV as needed. 4. Atarax 50 milligrams p.o. q. 6 hours as needed. 5. Tylenol 650 milligrams p.o. q. 4 hours as needed for fever and pain. 6. Milk of magnesia 30 mL p.o. every day as needed for constipation. 7. Oral multivitamins. 8. Megace 400 milligrams p.o. daily. 9. Morphine sulfate 15 milligrams p.o. q. 8 hours [id number]. 10. Zoloft 50 milligrams p.o. daily. 11. Nicotine, a 21 milligram patch every day transdermal. REVIEW OF SYSTEMS: A thirteen point review of systems was obtained and the following are the pertinent positives: CONSTITUTIONAL: The patient reports symptoms of fatigue and loss of appetite, weight loss. She denies fevers, chills or night sweats. HEAD, EYES, EARS, NOSE, THROAT: She reports generalized headache which has been worse over the past few weeks. Denies nosebleeds. She denies difficulty swallowing. She denies epistaxis. RESPIRATORY: Denies difficulty breathing, reports chronic cough, denies chest pain. CARDIOVASCULAR: Denies angina-like chest pain, PND, orthopnea GI: Denies nausea, vomiting, diarrhea hematochezia, melena. : Denies dysuria, hematuria or urinary incontinence. ACID FILLER: Denies any focal sensory or motor deficits. PHYSICAL EXAMINATION: VITAL SIGNS: Temperature 98.2 degrees Fahrenheit, heart rate 96 beats a minute, respiratory rate 18, blood pressure 124/70, O2 sats 90% on room air. GENERAL PHYSICAL APPEARANCE: Ms. Dyer is a middle-aged lady. She appears to be cachectic and chronically ill. She is sitting up in bed and is not in acute distress. A female nurse child and family counselor was present throughout this interview and throughout this examination. HEAD, EYES, EARS, NOSE, THROAT: Head atraumatic, normocephalic. Conjunctivae are non-pale. The sclerae are anicteric. Extraocular muscles intact. Pupils equal, round and reactive to light and accommodation. ORAL EXAM: No pharyngeal erythema. She does have temporal muscle wasting. NECK EXAM: No palpable cervical or supraclavicular lymphadenopathy. RESPIRATORY EXAM: Good air movement bilaterally. No added breath sounds. CARDIOVASCULAR EXAM: Regular rate and rhythm. S1, S2. No obvious murmurs, rubs or gallops. ABDOMINAL EXAM: Thin belly. Soft, nontender and nondistended. Palpable organ enlargement. AXILLARY EXAMINATION: No axillary lymphadenopathy bilaterally. BREAST EXAMINATION: Performed in the presence of a female nurse child and family counselor, no skin changes. No underlying masses identified in either breast. LOWER EXTREMITIES: No pretibial edema. No calf tenderness. ACID FILLER: No focal sensory or motor deficits. LABORATORY FINDINGS: Blood work dated 09/27/2017: White blood cell count 9.7, hemoglobin 14.4 grams/dL, hematocrit 43%, platelet count is 297,000. Absolute neutrophil count is 7.2. Chemistries: Sodium 144, potassium 3.7, chloride 113, bicarbonate 24, BUN 13, creatinine 0.58, eGFR 106, random glucose 90, calcium 8.9. IMAGING STUDIES: CT scan of the head dated 09/27/2017 indicates low attenuation 3.1 cm mass in the left basal ganglia. MRI of the brain dated 09/28/2017 indicates an area of diminished attenuation in the left basal ganglia / thalamus corresponding to a well circumscribed region of increased F2 FLAIR signal intensity with true diffusion restriction centrally. ASSESSMENT: Ms. Dyer is a 62-year-old female. 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 She had been having seizures at home and presented to [facility]. From there, she was transferred to our hospital because she reports suicidal ideation. She had a seizure on 09/27/2017 in our facility and underwent imaging studies of the brain. Initially a 3.1 cm mass was noted in the left basal ganglia / thalamus area on CT scan. The presence of this lesion was confirmed on MRI of the brain. Findings are concerning for possible low-grade malignancy. Additional symptoms the patient reports include unintended weight loss of about thirty pounds over the past several months, generalized fatigue and headaches. The oncology service has been asked to see her for further workup and management. RECOMMENDATIONS: 1. Mass in the left basal ganglia / thalamus area: Request systemic staging with CT scan of the chest, abdomen and pelvis to rule out presence of intrathoracic or intraabdominal lesions which may explain the intracranial findings. 2. Additionally the patient will require a CSF sampling with fluid cytology. 3. I will request neurosurgical consultation for further workup and management and possible tissue diagnosis of this thalamic lesion. MD DENI Pena/KEYLA /12:30 PM /4:28 PM
--- NOTE | 2017-10-01 18:09 | HHI.PYPN ---
Subjective Remarks Patient seen for follow up; chart reviewed. Discussion with nursing staff reported that patient has had no significant changes. Patient was seen lying on hospital bed, calm and cooperative. Patient continues to deny any change in mood , no acute psychiatric symptoms and continues to cooperative with medical management. Review of Systems Except as stated in HPI: all other systems reviewed are Neg Mental Status Examination Appearance: Appropriate Consciousness: Lethargic Orientation: x4, Person, Place, Date/Time Motor Activity: Normal gait Speech: Unremarkable Language: Adequate Fund of Knowledge: Inadequate Attention and Concentration: Adequate Memory: Unremarkable Mood: Appropriate Affect: Appropriate Thought Process & Associations: Intact, Linear, Other Thought Content: Appropriate Hallucination Type: None Delusion Type: None Suicidal Ideation: No Suicidal Plan: No Suicidal Intention: No Homicidal Ideation: No Homicidal Plan: No Homicidal Intention: No Insight: Adequate Judgment: Adequate Results Labs Test 10/01/17 07:00 10/01/17 13:35 10/01/17 15:40 Blood Urea Nitrogen 13 MG/DL Creatinine 0.58 MG/DL Random Glucose 90 MG/DL Calcium Level 8.9 MG/DL Sodium Level 144 MEQ/L Potassium Level 3.7 MEQ/L Chloride Level 113 MEQ/L Carbon Dioxide Level 24.1 MEQ/L Anion Gap 7 MEQ/L Estimat Glomerular Filtration Rate 106 ML/MIN Prothrombin Time 10.6 SEC Prothromb Time International Ratio 1.0 RATIO Activated Partial Thromboplast Time 24.2 SEC Vitals/IOs Vital Signs Date Time Temp Pulse Resp B/P (MAP) Pulse Ox O2 Delivery O2 Flow Rate FiO2 10/01/17 15:16 18 10/01/17 06:11 98.2 96 124/70 (88) 09/30/17 19:11 92 Intake and Output 10/01/17 10/01/17 10/02/17 08:00 16:00 00:00 Intake Total 720 ml Balance 720 ml Assessment & Plan Problem List: (1) Depression ICD Codes: F32.9 - Major depressive disorder, single episode, unspecified (2) Alcohol use disorder ICD Codes: F10.99 - Alcohol use, unspecified with unspecified alcohol-induced disorder (3) Opioid dependence ICD Codes: F11.20 - Opioid dependence, uncomplicated Assessment & Plan Patient continues to await transfer to medical floor as patient was discharged psychiatrically and no longer requires inpatient psychiatric admission. Patient to continue recommendations as per primary medical team. Transfer to medical floor when bed available. Justification for Cont. Inpt. Patient to be transferred to medical floor Remigio Henry MD Oct 01, 2017 18:09
[2017-10-01 18:39] VITALS: BP 151/79; PULSE 56; RESP 16; TEMP 98; O2SAT 95
--- NOTE | 2017-10-01 18:40 | HHI.PR ---
Review/Management Diagnosis 1. Possible seizures - Likely withdrawal, etiology is withdrawal from benzos / opiates, Wellbutrin. 2. Polysubstance abuse. Ethanol dependence. 3. Chronic back pain. 4. Nicotine dependence 5. Abnormal MRI finding ? mass lesion. Plan 1. Neurological checks q.4h. 2. Oncology consult, recommendations are appreciated 3. [facility] protocol. 4. Seizure precautions. follow up csf studies follow up CT chect, abdomen, pelvis. obtain MRI spectroscopy brain to further evaluate left thalamic/basal ganglia mass If work up unrevealing, recommend repeat brain MRI with and without contrast in one month to r/o neoplasm I recommend adding keppra 500 mg bid for possibility of sz being related to the ? brain mass Diagnosis/Plan: Subjective Subjective Comments No acute events reported No recurrent sz s/p LP today Active Medications Current Medications Medications (Trade) Dose Ordered Sig/Alicia Route Start Time Stop Time Status Last Admin (Atarax) 50 mg Q6H PRN PO 09/22/17 19:15 10/01/17 15:06 (Tylenol) 650 mg Q4H PRN PO 09/22/17 19:15 09/30/17 23:50 (Milk Of Magnesia Liq) 30 ml DAILY PRN PO 09/22/17 19:15 (Mag-Al Plus Susp Liq) 30 ml Q6H PRN PO 09/22/17 19:15 (Habitrol 21 Mg Patch.24 Hr) 1 patch DAILY T-DERMAL 09/23/17 09:00 10/01/17 09:30 Miscellaneous Information 1 HS T-DERMAL 09/22/17 21:00 09/30/17 20:15 (Ativan) 1 mg Q4H PRN PO 09/22/17 21:00 09/27/17 21:09 (Ativan Inj) 1 mg Q4H PRN IV PUSH 09/22/17 21:00 (Ativan) 2 mg Q2H PRN PO 09/22/17 21:00 09/29/17 09:15 (Ativan Inj) 2 mg Q2H PRN IV PUSH 09/22/17 21:00 (Ativan Inj) 2 mg Q1H PRN IV PUSH 09/22/17 21:00 (Ativan Inj) 2 mg Q15M PRN IV PUSH 09/22/17 21:00 09/27/17 09:30 (Haldol Inj) 2 mg Q15M PRN IM 09/22/17 21:00 (Romazicon Inj) 0.2 mg Q1M PRN IV PUSH 09/22/17 21:00 (Zoloft) 50 mg DAILY PO 09/23/17 15:30 10/01/17 09:30 (Oramorph Sr) 15 mg Q8HR PO 09/23/17 22:00 10/01/17 13:21 (Remeron) 15 mg HS PO 09/24/17 21:00 09/30/17 20:14 (Ativan Inj) 1 mg Q15M PRN IV PUSH 09/27/17 13:15 (Theragran) 1 tab DAILY PO 10/01/17 11:00 10/01/17 13:21 (Megace Liq) 400 mg DAILY PO 10/01/17 11:00 10/01/17 13:21 Allergies Allergies Coded Allergies No Known Allergies (Verified Allergy, Unknown, 09/22/17) Review of Systems All other ROS: ROS reviewed as documented in chart Exam I&O / VS 10/01/17 10/01/17 10/02/17 15:00 23:00 07:00 Intake Total 720 ml Balance 720 ml Intake Oral 720 ml # Voids 3 Vital Signs Date Time Temp Pulse Resp B/P (MAP) Pulse Ox O2 Delivery O2 Flow Rate FiO2 10/01/17 15:16 18 10/01/17 06:11 98.2 96 18 124/70 (88) 09/30/17 19:11 99.0 65 17 101/61 (74) 92 Exam Comments alert, speech normal Cn intact MOTOR 5/5 BUE, no drift. Objective Micro and Labs Laboratory Tests Test 10/01/17 07:00 10/01/17 13:35 10/01/17 15:40 Blood Urea Nitrogen 13 Creatinine 0.58 Random Glucose 90 Calcium Level 8.9 Sodium Level 144 Potassium Level 3.7 Chloride Level 113 Carbon Dioxide Level 24.1 Anion Gap 7 Estimat Glomerular Filtration Rate 106 Prothrombin Time 10.6 Prothromb Time International Ratio 1.0 Activated Partial Thromboplast Time 24.2 Orville Whitaker MD PhD Oct 01, 2017 18:40
[2017-10-01] MEDS ORDERED: IOHEXOL 350 MG/ML 10 ML VIAL (for RAD DIAG) IVCONTRAST ONE (20:58)
[2017-10-01] MEDS: REMOVE OLD NICOTINE PATCH T-DERMAL SCH (21:00)
--- NOTE | 2017-10-01 21:34 | RADRPT ---
EXAM DATE/TIME: 10/01/2017 20:56 [facility] COMPARISON: No previous studies available for comparison. INDICATIONS : Abdominal pain. Weightloss. IV CONTRAST: 100 cc Omnipaque 350 (iohexol) IV ; Cumulative dose for multiple exams. ORAL CONTRAST: Prescribed oral contrast ingested. RADIATION DOSE: 3.90 CTDIvol (mGy) ; Combined studies - Thorax/Abdomen/Pelvis MEDICAL HISTORY : Carcinoma, not otherwise specified. SURGICAL HISTORY : None. ENCOUNTER: Initial ACUITY: 1 day PAIN SCALE: 5/10 LOCATION: abdomen TECHNIQUE: Volumetric scanning of the abdomen and pelvis was performed. Using automated exposure control and ad justment of the mA and/or kV according to patient size, radiation dose was kept as low as reasonably achievable to obtain optimal diagnostic quality images. DICOM format image data is available electro nically for review and comparison. FINDINGS: Mild dependent atelectasis at the lung bases No acute findings in the liver. Mild infiltration. Spleen, adrenals, kidneys and pancreas unremarkabl e. No calcified gallstones. There is no free fluid. No bowel obstruction. No adenopathy. Moderate constipation. Healing fractures of the inferior pubic rami bilaterally and the left superior pubic ramus as well as bilateral sacral alar fractures. CONCLUSION: 1. No acute findings. Mild constipation. Multiple subacute or old pelvic fractures Kris Matos MD on October 01, 2017 at 21:27 Board Certified Radiologist. This report was verified electronically.
[2017-10-01] MEDS: levETIRAcetam 500 MG TAB PO SCH (21:40)
[2017-10-01] MEDS: MIRTAZAPINE 15 MG TAB PO SCH (21:40)
--- NOTE | 2017-10-01 21:43 | RADRPT ---
EXAM DATE/TIME: 10/01/2017 20:56 [facility] COMPARISON: No previous studies available for comparison. INDICATIONS : Brain neoplasm. Weightloss. IV CONTRAST: 100 cc Omnipaque 350 (iohexol) IV ; Cumulative dose for multiple exams. RADIATION DOSE: 3.90 CTDIvol (mGy) ; Combined studies - Thorax/Abdomen/Pelvis MEDICAL HISTORY : Carcinoma, not otherwise specified. SURGICAL HISTORY : None. ENCOUNTER: Initial ACUITY: 1 day PAIN SCALE: 0/10 LOCATION: chest TECHNIQUE: Volumetric scanning of the chest was performed. Using automated exposure control and adjustment of t he mA and/or kV according to patient size, radiation dose was kept as low as reasonably achievable to obtain optimal diagnostic quality images. DICOM format image data is available electronically for review and comparison. Follow-up recommendations for detected pulmonary nodules are based at a minimum on nodule size and pa tient risk factors according to Fleischner Society Guidelines. FINDINGS: No filling defects identified to suggest pulmonary embolic disease. No pleural or pericardial effusio n. Mild fibrotic changes are present probably at the lung bases. There is mild emphysema. No aneurysm . CONCLUSION: 1. Mild emphysema. Mild fibrosis. No suspicious lung mass or adenopathy. No effusions. Kris Matos MD on October 01, 2017 at 21:38 Board Certified Radiologist. This report was verified electronically.
[2017-10-02 05:57] VITALS: BP 146/76; PULSE 62; RESP 15; TEMP 97.8; O2SAT 97
[2017-10-02] MEDS: MORPHINE SULFATE 15 MG CONTROLLED RELEASE TAB PO SCH ×3 (06:00→21:46)
--- NOTE | 2017-10-02 08:03 | HHI.PR ---
Subjective Remarks In bed appears in distress. Abdomen lumbar puncture. Denies pain at this time. No nausea vomiting diarrhea or constipation. Denies any headaches change in vision. No motor deficit. Objective Vitals Vital Signs Date Time Temp Pulse Resp B/P (MAP) Pulse Ox O2 Delivery O2 Flow Rate FiO2 10/02/17 05:57 97.8 62 15 146/76 (99) 97 10/01/17 18:39 98.0 56 16 151/79 (103) 95 10/01/17 15:16 18 I/O 10/01/17 10/01/17 10/01/17 10/02/17 10/02/17 10/02/17 07:00 15:00 23:00 07:00 15:00 23:00 Intake Total 720 ml 720 ml 120 ml Balance 720 ml 720 ml 120 ml Intake Oral 720 ml 720 ml 120 ml # Voids 3 4 1 Result Diagram: 10/01/17 0700 Imaging Last Impressions Lumbar Puncture Fluoroscopy 10/01/17 0000 Signed Impressions: Service Date/Time: Sunday, October 01, 2017 16:49 - CONCLUSION: Uncomplicated fluoroscopically guided lumbar puncture. Enoch Escalera MD Chest CT 10/01/17 0000 Signed Impressions: Service Date/Time: Sunday, October 01, 2017 20:56 - CONCLUSION: 1. Mild emphysema. Mild fibrosis. No suspicious lung mass or adenopathy. No effusions. Kris Matos MD Abdomen/Pelvis CT 10/01/17 0000 Signed Impressions: Service Date/Time: Sunday, October 01, 2017 20:56 - CONCLUSION: 1. No acute findings. Mild constipation. Multiple subacute or old pelvic fractures Kris Matos MD Neck Magnetic Resonance Angiography 09/29/17 0000 Signed Impressions: Service Date/Time: Friday, September 29, 2017 10:39 - CONCLUSION: No carotid stenosis. Remigio Aguilera MD Head Magnetic Resonance Angiography 09/29/17 0000 Signed Impressions: Service Date/Time: Friday, September 29, 2017 10:39 - CONCLUSION: Negative for major branch vessel occlusion. Moderate atherosclerotic vascular changes. Nba Escalera MD FACR Brain MRI 09/28/17 0000 Signed Impressions: Service Date/Time: Thursday, September 28, 2017 17:04 - CONCLUSION: 1. Area of diminished attenuation in the left basal ganglia/thalamus corresponds to a well-circumscribed region of increased T2 flair signal intensity with true diffusion restriction centrally. 2. While the lesion demonstrates mass effect, there is no significant enhancement. Findings could represent evolving infarct but the regional mass effect is somewhat concerning. The lesion could represent a low-grade neoplasm such as lymphoma. 3. Periventricular, deep white matter tracts and posterior subcortical white matter changes as above. Sherman Snow MD Head CT 09/27/17 0000 Signed Impressions: Service Date/Time: Wednesday, September 27, 2017 18:28 - CONCLUSION: 1. Low-attenuation 3.1 cm mass in the left basal ganglia extending cephalad. Further evaluation with MRI brain with and without contrast is recommended. There is mild localized mass effect. No hemorrhage. Kris Matos MD Chest X-Ray 09/27/17 0000 Signed Impressions: Service Date/Time: Wednesday, September 27, 2017 13:39 - CONCLUSION: Moderate peribronchial thickening. Nba Escalera MD FACR Objective Remarks GENERAL: Cachectic female, laying in bed comfortably. SKIN: Warm and dry. HEAD: Bitemporal wasting, sunken. Atraumatic. Normocephalic. EYES: Pupils equal and round. No scleral icterus. No injection or drainage. CARDIOVASCULAR: Regular rate and rhythm. RESPIRATORY: No accessory muscle use. Clear to auscultation. Breath sounds equal bilaterally. GASTROINTESTINAL: Abdomen soft, scaphoid, non-tender, nondistended. Hepatic and splenic margins not palpable. MUSCULOSKELETAL: Extremities without clubbing, cyanosis, or edema. No obvious deformities. NEUROLOGICAL: Awake and alert. No obvious cranial nerve deficits. Motor grossly within normal limits. Five out of 5 muscle strength in the arms and legs. Normal speech. A/P Problem List: (1) Delirium tremens ICD Code: F10.231 - Alcohol dependence with withdrawal delirium (2) Chronic back pain ICD Code: M54.9 - Dorsalgia, unspecified; G89.29 - Other chronic pain (3) Opioid dependence ICD Code: F11.20 - Opioid dependence, uncomplicated (4) Depression ICD Code: F32.9 - Major depressive disorder, single episode, unspecified Status: Acute Assessment and Plan Depression with hallucination: management per psych Seizures- while in hospital on 09/27/17- doubt DT since she has been in hospital since 2 days prior to 09/22. CIWA protocol in place Poss lymphoma left basal ganglia/thalamus. Abnormal head CT- MRI showed area if diminished attenuation left basal ganglia/thalamus concerning for lymphoma. Neurology evaluated the pt and recommends med/onc consultation. Consult for further recs Oncology ff, S/P LP by IR CSF sent for flow cytometry Might need biopsy Work up in progress Severe protein calorie malnutrition bitemporal waisting sunken , low BMI, muscle waisting. Weight loss- 30 pound weight loss in 3 months (reported). Pt has been strongly advised on outpatient mammogram, colonoscopy, pap smear- pt never had any workup. In addition neuro/onc work-up in progress. Pt has been encouraged to eat as she have a poor appetite. While on the medical floor recommend calorie count to see if she is meeting her caloric needs. Add megace, MVT, ensure to diet Hypokalemia- replaced. repeat in AM. Chronic back pain/ Opioid dependence Narcotics must be continued to prevent narcotic withdrawal. Safer modality would be long-acting narcotics. - on MS Contin started at 15 mg by mouth every 8 hours. Wean as tolerated. Discharge Planning Transfer to medical floor when bed available. Discussed with the patient. nurse Terri Reyes MD Oct 02, 2017 08:03
[2017-10-02] MEDS: SERTRALINE HCL 50 MG TAB PO SCH (08:39)
[2017-10-02] MEDS: MULTIVITAMIN TAB PO SCH (08:39)
[2017-10-02] MEDS: NICOTINE 21 MG/24 HR PATCH T-DERMAL SCH (08:39)
[2017-10-02] MEDS: levETIRAcetam 500 MG TAB PO SCH ×2 (08:39→20:24)
[2017-10-02] MEDS: MEGESTROL ACETATE SUSP 400 MG/10 ML CUP PO SCH (08:39)
--- NOTE | 2017-10-02 08:43 | HHI.PYPN ---
Subjective Remarks Patient seen in her room with nurse Vesna, chart reviewed, patient compliant medication. Patient alert oriented, pleasant with me compliant with medication. Denying suicidality voices or visions. For now continue treatment Review of Systems Except as stated in HPI: all other systems reviewed are Neg Mental Status Examination Appearance: Appropriate Consciousness: Lethargic Orientation: x4, Person, Place, Date/Time Motor Activity: Normal gait Speech: Unremarkable Language: Adequate Fund of Knowledge: Inadequate Attention and Concentration: Adequate Memory: Unremarkable Mood: Appropriate Affect: Appropriate Thought Process & Associations: Intact, Linear, Other Thought Content: Appropriate Hallucination Type: None Delusion Type: None Suicidal Ideation: No Suicidal Plan: No Suicidal Intention: No Homicidal Ideation: No Homicidal Plan: No Homicidal Intention: No Insight: Adequate Judgment: Adequate Results Labs Test 10/01/17 13:35 10/01/17 15:40 Prothrombin Time 10.6 SEC Prothromb Time International Ratio 1.0 RATIO Activated Partial Thromboplast Time 24.2 SEC Vitals/IOs Vital Signs Date Time Temp Pulse Resp B/P (MAP) Pulse Ox O2 Delivery O2 Flow Rate FiO2 10/02/17 05:57 97.8 62 15 146/76 (99) 97 Intake and Output 10/02/17 10/02/17 10/03/17 08:00 16:00 00:00 Intake Total 120 ml Balance 120 ml Assessment & Plan Problem List: (1) Depression ICD Codes: F32.9 - Major depressive disorder, single episode, unspecified Status: Acute (2) Alcohol use disorder ICD Codes: F10.99 - Alcohol use, unspecified with unspecified alcohol-induced disorder (3) Opioid dependence ICD Codes: F11.20 - Opioid dependence, uncomplicated Assessment & Plan Estimated LOS: days patient continues depressed that appears to be resolving somewhat. Showing slightly to process her behaviors and work the treatment team related to placement issues Justification for Cont. Inpt. At this time patient will decompensate and placed on the lower level of care Discharge Planning Continue to work with patient treatment team on placement issues Wilmer Padilla MD Oct 02, 2017 08:43
--- NOTE | 2017-10-02 12:20 | PD.ONC.PN ---
Subjective Subjective Remarks Afebrile Patient reports "I don't have much of an appetite, but other than that I feel okay" Tolerated LP yesterday and reports a mild headache Objective Data Date Time Temp Pulse Resp B/P (MAP) Pulse Ox O2 Delivery O2 Flow Rate FiO2 10/02/17 05:57 97.8 62 15 146/76 (99) 97 10/01/17 18:39 98.0 56 16 151/79 (103) 95 10/01/17 15:16 18 10/02/17 10/02/17 10/02/17 07:00 15:00 23:00 Intake Total 120 ml 240 ml Balance 120 ml 240 ml Result Diagram: 10/01/17 0700 Laboratory Results Laboratory Tests Test 10/01/17 13:35 10/01/17 15:40 Prothrombin Time 10.6 SEC Prothromb Time International Ratio 1.0 RATIO Activated Partial Thromboplast Time 24.2 SEC Administered Medications Medications (Trade) Dose Ordered Sig/Alicia Route PRN Reason Start Time Stop Time Status Last Admin Dose Admin Hydroxyzine HCl (Atarax) 50 mg Q6H PRN PO ANXIETY 09/22/17 19:15 10/01/17 21:43 Acetaminophen (Tylenol) 650 mg Q4H PRN PO Pain 1-10 or Temp >101F 09/22/17 19:15 09/30/17 23:50 Nicotine (Habitrol 21 Mg Patch.24 Hr) 1 patch DAILY T-DERMAL 09/23/17 09:00 10/02/17 08:39 Miscellaneous Information 1 HS T-DERMAL 09/22/17 21:00 10/01/17 21:00 Lorazepam (Ativan) 1 mg Q4H PRN PO CIWA 8-10 09/22/17 21:00 09/27/17 21:09 Lorazepam (Ativan) 2 mg Q2H PRN PO CIWA 11-14 09/22/17 21:00 09/29/17 09:15 Lorazepam (Ativan Inj) 2 mg Q15M PRN IV PUSH CIWA > 20 09/22/17 21:00 09/27/17 09:30 Sertraline HCl (Zoloft) 50 mg DAILY PO 09/23/17 15:30 10/02/17 08:39 Morphine Sulfate (Oramorph Sr) 15 mg Q8HR PO 09/23/17 22:00 10/02/17 06:00 Mirtazapine (Remeron) 15 mg HS PO 09/24/17 21:00 10/01/17 21:40 Multivitamins (Theragran) 1 tab DAILY PO 10/01/17 11:00 10/02/17 08:39 Megestrol Acetate (Megace Liq) 400 mg DAILY PO 10/01/17 11:00 10/02/17 08:39 Levetriacetam (Keppra) 500 mg Q12HR PO 10/01/17 21:00 10/02/17 08:39 Objective Remarks GENERAL: Thin older female resting in bed watching TV in no acute distress SKIN: Warm and dry. HEAD: Normocephalic. EYES: No injection or drainage. NECK: Supple, trachea midline. CARDIOVASCULAR: Regular rate and rhythm without murmurs. RESPIRATORY: Clear to auscultation. Breathing unlabored at rest. GASTROINTESTINAL: Abdomen soft, non-tender, nondistended. EXTREMITIES: No cyanosis, or edema. MUSCULOSKELETAL: Adequate muscle tone. NEUROLOGICAL: Moving all extremities. Normal speech. No obvious focal deficit. Assessment/Plan Assessment 62 y/o female admitted with seizures found to have a lesion to her thalamus; oncology consulted for further recommendations Plan 1. Staging scans of the chest abdomen and pelvis show no evidence of malignancy 2. Neuro has ordered an MRI spectroscopy 3. Await cytology from lumbar puncture 4. Appreciate neuro surgery input Attending Statement The exam, history, and the medical decision-making described in the above note were completed with the assistance of the mid-level provider. I reviewed and agree with the findings presented. I attest that I had a [id number] encounter with the patient on the same day, and personally performed and documented my assessment and findings in the medical record. patient alert and feels well. MRI of brain reviewed and ct of thorax, abd and pelvis negative. If nothing further is to be done she will need close follow up with neurology and sequential MRIs to aid in establishing a diagnosis. The area of concern is deep in the brain and would be difficult to reach. 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 Amanda Lopez Oct 02, 2017 12:20 Jose Juan Quezada MD Oct 02, 2017 18:18
[2017-10-02] MEDS: MAGNESIUM HYDROXIDE SUSP 30 ML CUP PO PRN (16:11)
[2017-10-02 18:46] VITALS: BP 156/74; PULSE 58; RESP 16; TEMP 98.3; O2SAT 97
[2017-10-02] MEDS: REMOVE OLD NICOTINE PATCH T-DERMAL SCH (20:24)
[2017-10-02] MEDS: MIRTAZAPINE 15 MG TAB PO SCH (20:24)
[2017-10-03] MEDS: MORPHINE SULFATE 15 MG CONTROLLED RELEASE TAB PO SCH ×3 (05:47→21:05)
[2017-10-03 06:22] VITALS: BP 113/60; PULSE 51; RESP 15; TEMP 98; O2SAT 97
--- NOTE | 2017-10-03 07:39 | HHI.PR ---
Subjective Remarks Patient in bed appears in nad. No fever or chills. No n/v/d/c. Eating but not much appetite improved some. No chest pain. No headache, change in vision or motor deficit. Refused MRI yesterday Objective Vitals Vital Signs Date Time Temp Pulse Resp B/P (MAP) Pulse Ox O2 Delivery O2 Flow Rate FiO2 10/03/17 06:22 98.0 51 15 113/60 (77) 97 10/02/17 18:46 98.3 58 16 156/74 (101) 97 I/O 10/02/17 10/02/17 10/02/17 10/03/17 10/03/17 10/03/17 07:00 15:00 23:00 07:00 15:00 23:00 Intake Total 120 ml 480 ml 960 ml 120 ml Balance 120 ml 480 ml 960 ml 120 ml Intake Oral 120 ml 480 ml 960 ml 120 ml # Voids 1 1 1 Result Diagram: 10/01/17 0700 Imaging Last Impressions Lumbar Puncture Fluoroscopy 10/01/17 0000 Signed Impressions: Service Date/Time: Sunday, October 01, 2017 16:49 - CONCLUSION: Uncomplicated fluoroscopically guided lumbar puncture. Enoch Escalera MD Chest CT 10/01/17 0000 Signed Impressions: Service Date/Time: Sunday, October 01, 2017 20:56 - CONCLUSION: 1. Mild emphysema. Mild fibrosis. No suspicious lung mass or adenopathy. No effusions. Kris Matos MD Abdomen/Pelvis CT 10/01/17 0000 Signed Impressions: Service Date/Time: Sunday, October 01, 2017 20:56 - CONCLUSION: 1. No acute findings. Mild constipation. Multiple subacute or old pelvic fractures Kris Matos MD Neck Magnetic Resonance Angiography 09/29/17 0000 Signed Impressions: Service Date/Time: Friday, September 29, 2017 10:39 - CONCLUSION: No carotid stenosis. Remigio Aguilera MD Head Magnetic Resonance Angiography 09/29/17 0000 Signed Impressions: Service Date/Time: Friday, September 29, 2017 10:39 - CONCLUSION: Negative for major branch vessel occlusion. Moderate atherosclerotic vascular changes. Nba Escalera MD FACR Brain MRI 09/28/17 0000 Signed Impressions: Service Date/Time: Thursday, September 28, 2017 17:04 - CONCLUSION: 1. Area of diminished attenuation in the left basal ganglia/thalamus corresponds to a well-circumscribed region of increased T2 flair signal intensity with true diffusion restriction centrally. 2. While the lesion demonstrates mass effect, there is no significant enhancement. Findings could represent evolving infarct but the regional mass effect is somewhat concerning. The lesion could represent a low-grade neoplasm such as lymphoma. 3. Periventricular, deep white matter tracts and posterior subcortical white matter changes as above. Sherman Snow MD Head CT 09/27/17 0000 Signed Impressions: Service Date/Time: Wednesday, September 27, 2017 18:28 - CONCLUSION: 1. Low-attenuation 3.1 cm mass in the left basal ganglia extending cephalad. Further evaluation with MRI brain with and without contrast is recommended. There is mild localized mass effect. No hemorrhage. Kris Matos MD Chest X-Ray 09/27/17 0000 Signed Impressions: Service Date/Time: Wednesday, September 27, 2017 13:39 - CONCLUSION: Moderate peribronchial thickening. Nba Escalera MD FACR Objective Remarks GENERAL: Cachectic female, laying in bed comfortably. SKIN: Warm and dry. HEAD: Bitemporal wasting, sunken. Atraumatic. Normocephalic. EYES: Pupils equal and round. No scleral icterus. No injection or drainage. CARDIOVASCULAR: Regular rate and rhythm. RESPIRATORY: No accessory muscle use. Clear to auscultation. Breath sounds equal bilaterally. GASTROINTESTINAL: Abdomen soft, scaphoid, non-tender, nondistended. Hepatic and splenic margins not palpable. MUSCULOSKELETAL: Extremities without clubbing, cyanosis, or edema. No obvious deformities. NEUROLOGICAL: Awake and alert. No obvious cranial nerve deficits. Motor grossly within normal limits. Five out of 5 muscle strength in the arms and legs. Normal speech. A/P Problem List: (1) Delirium tremens ICD Code: F10.231 - Alcohol dependence with withdrawal delirium (2) Chronic back pain ICD Code: M54.9 - Dorsalgia, unspecified; G89.29 - Other chronic pain (3) Opioid dependence ICD Code: F11.20 - Opioid dependence, uncomplicated (4) Depression ICD Code: F32.9 - Major depressive disorder, single episode, unspecified Status: Acute Assessment and Plan Depression with hallucination: management per psych Seizures- while in hospital on 09/27/17- doubt DT since she has been in hospital since 2 days prior to 09/22. CIWA protocol in place Poss lymphoma left basal ganglia/thalamus. Abnormal head CT- MRI showed area if diminished attenuation left basal ganglia/thalamus concerning for lymphoma. Neurology evaluated the pt and recommends med/onc consultation. Consult for further recs Oncology ff, S/P LP by IR CSF sent for flow cytometry Might need biopsy CT chest and CT abd/pelvis reviewed no mets Severe protein calorie malnutrition bitemporal waisting sunken , low BMI, muscle waisting. Weight loss- 30 pound weight loss in 3 months (reported). Pt has been strongly advised on outpatient mammogram, colonoscopy, pap smear- pt never had any workup. In addition neuro/onc work-up in progress. Pt has been encouraged to eat as she have a poor appetite. While on the medical floor recommend calorie count to see if she is meeting her caloric needs. Add megace, MVT, ensure to diet Hypokalemia- replaced. repeat in AM. Chronic back pain/ Opioid dependence Narcotics must be continued to prevent narcotic withdrawal. Safer modality would be long-acting narcotics. - on MS Contin started at 15 mg by mouth every 8 hours. Wean as tolerated. Discharge Planning Plan to DC to medical floor when bed available. Discussed with the patient. nurse Terri Reyes MD Oct 03, 2017 07:39
--- NOTE | 2017-10-03 08:08 | HHI.PYPN ---
Subjective Remarks Patient seen in room with floor staff, chart reviewed, patient compliant medications. States patient had a good night slept well without problems. This morning patient is calm pleasant with me does denies suicidality of voices. Review of Systems Except as stated in HPI: all other systems reviewed are Neg Mental Status Examination Appearance: Appropriate Consciousness: Lethargic Orientation: x4, Person, Place, Date/Time Motor Activity: Normal gait Speech: Unremarkable Language: Adequate Fund of Knowledge: Inadequate Attention and Concentration: Adequate Memory: Unremarkable Mood: Appropriate Affect: Appropriate Thought Process & Associations: Intact, Linear, Other Thought Content: Appropriate Hallucination Type: None Delusion Type: None Suicidal Ideation: No Suicidal Plan: No Suicidal Intention: No Homicidal Ideation: No Homicidal Plan: No Homicidal Intention: No Insight: Adequate Judgment: Adequate Results Vitals/IOs Vital Signs Date Time Temp Pulse Resp B/P (MAP) Pulse Ox O2 Delivery O2 Flow Rate FiO2 10/03/17 06:22 98.0 51 15 113/60 (77) 97 Intake and Output 10/03/17 10/03/17 10/04/17 08:00 16:00 00:00 Intake Total 120 ml Balance 120 ml Assessment & Plan Problem List: (1) Depression ICD Codes: F32.9 - Major depressive disorder, single episode, unspecified Status: Acute (2) Alcohol use disorder ICD Codes: F10.99 - Alcohol use, unspecified with unspecified alcohol-induced disorder (3) Opioid dependence ICD Codes: F11.20 - Opioid dependence, uncomplicated Assessment & Plan Estimated LOS: days patient continues somewhat depressed allow denies suicidality of voices. Compliant medications. Did sleep well last night for now continue treatment Justification for Cont. Inpt. At this time patient decompensated place to the lower level of care Discharge Planning To be determined Wilmer Padilla MD Oct 03, 2017 08:08
[2017-10-03] MEDS: levETIRAcetam 500 MG TAB PO SCH ×2 (08:26→21:05)
[2017-10-03] MEDS: MULTIVITAMIN TAB PO SCH (08:26)
[2017-10-03] MEDS: SERTRALINE HCL 50 MG TAB PO SCH (08:26)
[2017-10-03] MEDS: MEGESTROL ACETATE SUSP 400 MG/10 ML CUP PO SCH (08:26)
[2017-10-03] MEDS: NICOTINE 21 MG/24 HR PATCH T-DERMAL SCH (08:27)
[2017-10-03] MEDS: MAGNESIUM HYDROXIDE SUSP 30 ML CUP PO PRN (08:35)
--- NOTE | 2017-10-03 13:34 | MB ---
cc: DARRYL TRUJILLO M.D. DATE OF CONSULTATION: 10/02/2017 REASON FOR CONSULTATION: Left thalamic abnormality. HISTORY OF PRESENT ILLNESS: The patient is a 62-year-old right-handed female who was admitted on 09/23/2017 and transferred from [facility] for psychiatric evaluation and admission. Apparently she related some suicidal ideation and was depressed. She also has a history of opiate and benzodiazepines abuse and during admission was felt to have a possible withdrawal related seizure and was seen by neurology and further workup included CT scan of the head and subsequent MRI with and without contrast which revealed approximately 2.8 cm left thalamic abnormality with enlargement although no enhancement. Differential diagnosis of an infarct versus low grade mass has been entertained. Oncology has also been consulted. They request neurosurgical evaluation. She has had a lumbar puncture undertaken and CSF cytology did not show much cells or neoplastic cells. At this point she states that she is feeling back to her normal status. Denies any headache or any neurologic symptoms. She relates chronic low back pain. She is on disability. PAST MEDICAL HISTORY 1. Depression. 2. Left arm and DVT. 3. Chronic back pain. 4. Pelvic ring fracture. MEDICATIONS Currently include: 1. Keppra 5 mg q12 hours. 2. Megace 400 milligrams daily. 3. Multivitamin daily. 4. Remeron 15 milligrams q hs. 5. Morphine 15 milligrams q8 hours. 6. Zoloft 50 milligrams daily. 7. Nicotine patch. 8. Ativan p.r.n. 9. Atarax. ALLERGIES: NO KNOWN DRUG ALLERGIES. SOCIAL HISTORY She is disabled, is . Smokes about five cigarettes a day. Does admit to drinking alcohol although will not relate to me how much she drinks on a daily basis. There is a history of alcohol abuse also in the chart noted. FAMILY HISTORY No history of tumors or cancers in the family, or coronary artery disease. REVIEW OF SYSTEMS Pertinent positives mentioned in the history of present illness otherwise 12 system review is negative. LABORATORY STUDIES: White blood cell count 9.7, hemoglobin 14.4, platelet count 297. PT 10.6, INR 1.0, PTT 24.2. Sodium 144, potassium 3.7, BUN 13, creatinine 0.58, glucose 90, PT 10.6, INR 1.0, PTT 24.2. CSF cytology also negative for neoplastic cells. PHYSICAL EXAMINATION: Vital signs: Temperature 97.8, pulse is 62, respiratory rate 15, blood pressure 146/76, oxygen saturation is 97% on room air. Head: Normocephalic, atraumatic. No Barreto's or raccoon sign. Neck: Supple with no guarding or rigidity. Chest: Clear to auscultation bilaterally. Heart: Regular rate and rhythm. Normal S1-S2. Abdomen: Soft, nontender. No hepatosplenomegaly. Extremities: No cyanosis or edema. Skin: No breakdown, rash or ecchymosis. General: The patient is a well-developed lady who is laying in bed in no acute distress. Neurologic: She is awake, alert, oriented x3. Pupils are equal and reactive. Extraocular muscles intact. Face is symmetric. Tongue is midline. Extremities: She moves all four extremities with normal strength. Neurologic: Negative Babinski. Speech is fluent. Light touch sensation is intact. IMPRESSION: 1. Left thalamic non-enhancing abnormality. This extends into the posterior aspect and mem of the internal capsule on the T2 and flair imaging in particular. There is also bilateral occipital pole area flair imaging abnormalities noted. There is no enhancement with contrast. There is no associated hydrocephalus or obstruction of the third ventricle. Differential diagnosis includes low grade neoplasm including a thalamic glioma among other possibilities. Infarct also needs to be entertained. Neurology has recommended an MRI Spectroscopy and subsequent follow-up imaging studies in a month to assess for any change in the size of this mass lesion. 2. Depression. 3. History of opiate and benzodiazepine abuse. PLAN I have discussed the findings at length with the patient. We discussed the option of left thalamic biopsy to further dilate the diagnosis. Given that this is deep and eloquent location, a biopsy does carry risks associated with it which were discussed. She relates to me that she does not want any biopsy undertaken and would like to continue with the plan outlined by neurology with follow up imaging in a month to assess for any changes and then address whether she feels she should have the biopsy done. MRI Spectroscopy could be useful but usually has a false negative and false positive reading to it. We also discussed referral to the [facility] or [facility], for neurosurgical opinion which she also declines at this time. Accordingly at this time there is not much that I can add to her care and will see her on an as-needed basis if needed in the future. MD SAMUEL Zambrano/NICK /11:47 AM /12:59 PM
[2017-10-03 16:14] VITALS: BP 133/72; PULSE 53; RESP 15; TEMP 97.9; O2SAT 98
[2017-10-03] MEDS: REMOVE OLD NICOTINE PATCH T-DERMAL SCH (21:00)
[2017-10-03] MEDS: MIRTAZAPINE 15 MG TAB PO SCH (21:05)
[2017-10-04 06:00] VITALS: BP 139/72; PULSE 58; RESP 14; TEMP 97.9; O2SAT 95
[2017-10-04] MEDS: MORPHINE SULFATE 15 MG CONTROLLED RELEASE TAB PO SCH ×3 (06:26→21:27)
--- NOTE | 2017-10-04 07:59 | PD.ONC.PN ---
Subjective Subjective Remarks Pt seen this AM, VS, labs, medications, etl consultant notes reviewed. CT Chest/ABD/Pelvis reports and images reviewed. Subjectively, the patient denies any complaints, she specifically denies HAs, focal sensory deficits or seizure like activity. She tells me she has been cleared by psychiatry for d/c home pending medical clearance. She met with Dr. Moralez of neurosurgery yesterday, at present biopsy of the brain lesion is not planned. A course of observation is preferred. Objective Data Date Time Temp Pulse Resp B/P (MAP) Pulse Ox O2 Delivery O2 Flow Rate FiO2 10/04/17 07:37 18 10/04/17 06:00 97.9 58 14 139/72 (94) 95 10/03/17 16:14 97.9 53 15 133/72 (92) 98 10/04/17 10/04/17 10/04/17 07:00 15:00 23:00 Intake Total 240 ml Balance 240 ml Result Diagram: 10/01/17 0700 Administered Medications Medications (Trade) Dose Ordered Sig/Alicia Route PRN Reason Start Time Stop Time Status Last Admin Dose Admin Hydroxyzine HCl (Atarax) 50 mg Q6H PRN PO ANXIETY 09/22/17 19:15 10/01/17 21:43 Acetaminophen (Tylenol) 650 mg Q4H PRN PO Pain 1-10 or Temp >101F 09/22/17 19:15 09/30/17 23:50 Magnesium Hydroxide (Milk Of Magnesia Liq) 30 ml DAILY PRN PO CONSTIPATION 09/22/17 19:15 10/03/17 08:35 Nicotine (Habitrol 21 Mg Patch.24 Hr) 1 patch DAILY T-DERMAL 09/23/17 09:00 10/03/17 08:27 Miscellaneous Information 1 HS T-DERMAL 09/22/17 21:00 10/03/17 21:00 Lorazepam (Ativan) 1 mg Q4H PRN PO CIWA 8-10 09/22/17 21:00 09/27/17 21:09 Lorazepam (Ativan) 2 mg Q2H PRN PO CIWA 11-14 09/22/17 21:00 09/29/17 09:15 Lorazepam (Ativan Inj) 2 mg Q15M PRN IV PUSH CIWA > 20 09/22/17 21:00 09/27/17 09:30 Sertraline HCl (Zoloft) 50 mg DAILY PO 09/23/17 15:30 10/03/17 08:26 Morphine Sulfate (Oramorph Sr) 15 mg Q8HR PO 09/23/17 22:00 10/04/17 06:26 Mirtazapine (Remeron) 15 mg HS PO 09/24/17 21:00 10/03/17 21:05 Multivitamins (Theragran) 1 tab DAILY PO 10/01/17 11:00 10/03/17 08:26 Megestrol Acetate (Megace Liq) 400 mg DAILY PO 10/01/17 11:00 10/03/17 08:26 Levetriacetam (Keppra) 500 mg Q12HR PO 10/01/17 21:00 10/03/17 21:05 Objective Remarks GENERAL PHYSICAL APPEARANCE: Ms. Dyer is a middle-aged lady. She is sitting up in bed and is not in acute distress. HEAD, EYES, EARS, NOSE, THROAT: Head atraumatic, normocephalic. Conjunctivae are non-pale. The sclerae are anicteric. Extraocular muscles intact. Pupils equal, round and reactive to light and accommodation. ORAL EXAM: No pharyngeal erythema. She does have temporal muscle wasting. NECK EXAM: No palpable cervical or supraclavicular lymphadenopathy. RESPIRATORY EXAM: Good air movement bilaterally. No added breath sounds. CARDIOVASCULAR EXAM: Regular rate and rhythm. S1, S2. No obvious murmurs, rubs or gallops. ABDOMINAL EXAM: Thin belly. Soft, nontender and nondistended. Palpable organ enlargement. LOWER EXTREMITIES: No pretibial edema. No calf tenderness. COMMUNICATIONS STRATEGIST: No focal sensory or motor deficits. Assessment/Plan Assessment Ms. Dyer is a 62-year-old female. 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 She had been having seizures at home and presented to [facility]. From there, she was transferred to our hospital because she reported suicidal ideation. She had a seizure on 09/27/2017 in our facility and underwent imaging studies of the brain. Initially a 3.1 cm mass was noted in the left basal ganglia / thalamus area on CT scan. The presence of this lesion was confirmed on MRI of the brain. Findings are concerning for possible low-grade malignancy vs. infarction. Additional symptoms the patient reports include unintended weight loss of about thirty pounds over the past several months, generalized fatigue and headaches. The oncology service has been asked to see her for further workup and management. Plan 1. Staging scans of the chest abdomen and pelvis show no evidence of malignancy 2. Neuro has ordered an MRI spectroscopy 3. Await cytology from lumbar puncture 4. Appreciate neuro surgery input Attending Statement 1. 3 cm lesion in the L thalamus: Biopsy would be the definitive way to obtain a diagnosis. She declines this at this point. Observation with repeat MRI brain with and without contrast in 4 weeks will be ordered to assess for changes. The pt understands that she may eventually need a biopsy. Await CSF cytology and flow studies. I will arrange out pt follow up. She is clear for d/c home from an oncology standpoint given a biopsy is not planned. Kalen nAgulo MD Oct 04, 2017 07:59
[2017-10-04] MEDS: MULTIVITAMIN TAB PO SCH (08:47)
[2017-10-04] MEDS: MEGESTROL ACETATE SUSP 400 MG/10 ML CUP PO SCH (08:47)
[2017-10-04] MEDS: SERTRALINE HCL 50 MG TAB PO SCH (08:47)
[2017-10-04] MEDS: levETIRAcetam 500 MG TAB PO SCH ×2 (08:48→21:05)
[2017-10-04] MEDS: NICOTINE 21 MG/24 HR PATCH T-DERMAL SCH (08:48)
--- NOTE | 2017-10-04 10:23 | HHI.PR ---
Subjective Remarks 10-03 Patient in bed appears in nad. No fever or chills. No n/v/d/c. Eating but not much appetite improved some. No chest pain. No headache, change in vision or motor deficit. Refused MRI yesterday 10-04 STILL REFUSING MRI ONCOLOGY WANTS REPEAT MRI- PATIENT REFUSING NEUROSURGERY --PATIENT NOT WANTING BIOPSY OF HER BRAIN AT ALL- REFUSING DW RN AND PT AND PSYCHIATRY Objective Vitals Vital Signs Date Time Temp Pulse Resp B/P (MAP) Pulse Ox O2 Delivery O2 Flow Rate FiO2 10/04/17 07:37 18 10/04/17 06:00 97.9 58 14 139/72 (94) 95 10/03/17 16:14 97.9 53 15 133/72 (92) 98 I/O 10/03/17 10/03/17 10/03/17 10/04/17 10/04/17 10/04/17 07:00 15:00 23:00 07:00 15:00 23:00 Intake Total 120 ml 480 ml 1200 ml 240 ml 240 ml Balance 120 ml 480 ml 1200 ml 240 ml 240 ml Intake Oral 120 ml 480 ml 1200 ml 240 ml 240 ml # Voids 1 1 1 Result Diagram: 10/01/17 0700 Other Results Laboratory Tests Test 10/01/17 13:35 10/01/17 15:40 Prothrombin Time 10.6 SEC Prothromb Time International Ratio 1.0 RATIO Activated Partial Thromboplast Time 24.2 SEC Miscellaneous Test Result Imaging Last Impressions Lumbar Puncture Fluoroscopy 10/01/17 0000 Signed Impressions: Service Date/Time: Sunday, October 01, 2017 16:49 - CONCLUSION: Uncomplicated fluoroscopically guided lumbar puncture. Enoch Escalera MD Chest CT 10/01/17 0000 Signed Impressions: Service Date/Time: Sunday, October 01, 2017 20:56 - CONCLUSION: 1. Mild emphysema. Mild fibrosis. No suspicious lung mass or adenopathy. No effusions. Kris Matos MD Abdomen/Pelvis CT 10/01/17 0000 Signed Impressions: Service Date/Time: Sunday, October 01, 2017 20:56 - CONCLUSION: 1. No acute findings. Mild constipation. Multiple subacute or old pelvic fractures Kris Matos MD Neck Magnetic Resonance Angiography 09/29/17 0000 Signed Impressions: Service Date/Time: Friday, September 29, 2017 10:39 - CONCLUSION: No carotid stenosis. Remigio Aguilera MD Head Magnetic Resonance Angiography 09/29/17 0000 Signed Impressions: Service Date/Time: Friday, September 29, 2017 10:39 - CONCLUSION: Negative for major branch vessel occlusion. Moderate atherosclerotic vascular changes. Nba Escalera MD FACR Brain MRI 09/28/17 0000 Signed Impressions: Service Date/Time: Thursday, September 28, 2017 17:04 - CONCLUSION: 1. Area of diminished attenuation in the left basal ganglia/thalamus corresponds to a well-circumscribed region of increased T2 flair signal intensity with true diffusion restriction centrally. 2. While the lesion demonstrates mass effect, there is no significant enhancement. Findings could represent evolving infarct but the regional mass effect is somewhat concerning. The lesion could represent a low-grade neoplasm such as lymphoma. 3. Periventricular, deep white matter tracts and posterior subcortical white matter changes as above. Sherman Snow MD Head CT 09/27/17 0000 Signed Impressions: Service Date/Time: Wednesday, September 27, 2017 18:28 - CONCLUSION: 1. Low-attenuation 3.1 cm mass in the left basal ganglia extending cephalad. Further evaluation with MRI brain with and without contrast is recommended. There is mild localized mass effect. No hemorrhage. Kris Matos MD Chest X-Ray 09/27/17 0000 Signed Impressions: Service Date/Time: Wednesday, September 27, 2017 13:39 - CONCLUSION: Moderate peribronchial thickening. 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 HEAD: Atraumatic. Normocephalic. EYES: Pupils equal and round. No scleral icterus. No injection or drainage. Extraocular muscles intact ENT: No nasal bleeding or discharge. Mucous membranes pink and moist. Tongue is midline NECK: Trachea midline. No JVD. Supple CARDIOVASCULAR: Regular rate and rhythm. S1-S2 no S3 or S4 RESPIRATORY: No accessory muscle use. Clear to auscultation. Breath sounds equal bilaterally. GASTROINTESTINAL: Abdomen soft, non-tender, nondistended. Hepatic and splenic margins not palpable. MUSCULOSKELETAL: Extremities without clubbing, cyanosis, or edema. No obvious deformities. NEUROLOGICAL: Awake and alert. No obvious cranial nerve deficits. Motor grossly within normal limits. 4 out of 5 muscle strength in the arms and legs. Normal speech. PSYCHIATRIC: INAppropriate mood and affect; insight and judgment ABnormal. Medications and IVs Current Medications Hydroxyzine HCl (Atarax) 50 mg Q6H PRN PO ANXIETY Last administered on 21:43; Start 09/22/17 at 19:15 Diphenhydramine HCl (Benadryl) 50 mg HS PRN PO INSOMNIA; Start 09/22/17 at 19: 15; Stop 09/23/17 at 16:35; Status DC Diphenhydramine HCl (Benadryl Inj) 50 mg HS PRN IM INSOMNIA; Start 09/22/17 at 19:15; Stop 09/23/17 at 16:35; Status DC Acetaminophen (Tylenol) 650 mg Q4H PRN PO Pain 1-10 or Temp >101F Last administered on 09/30/17at 23:50; Start 09/22/17 at 19:15 Magnesium Hydroxide (Milk Of Magnesia Liq) 30 ml DAILY PRN PO CONSTIPATION Last administered on 10/03/17 08:35; Start 09/22/17 at 19:15 Al Hydrox/Mg Hydrox/Simethicone (Mag-Al Plus Susp Liq) 30 ml Q6H PRN PO DYSPEPSIA; Start 09/22/17 at 19:15 Nicotine (Habitrol 21 Mg Patch.24 Hr) 1 patch DAILY T-DERMAL Last administered on 10/04/17at 08:48; Start 09/23/17 at 09:00 Miscellaneous Information 1 HS T-DERMAL Last administered on 10/03/17at 21:00; Start 09/22/17 at 21:00 Lorazepam (Ativan) 1 mg Q4H PRN PO CIWA 8-10 Last administered on 09/27/17at 21: 09; Start 09/22/17 at 21:00 Lorazepam (Ativan Inj) 1 mg Q4H PRN IV PUSH CIWA 8-10; Start 09/22/17 at 21:00 Lorazepam (Ativan) 2 mg Q2H PRN PO CIWA 11-14 Last administered on 09/29/17at 09 :15; Start 09/22/17 at 21:00 Lorazepam (Ativan Inj) 2 mg Q2H PRN IV PUSH CIWA 11-14; Start 09/22/17 at 21:00 Lorazepam (Ativan Inj) 2 mg Q1H PRN IV PUSH CIWA 15-20; Start 09/22/17 at 21:00 Lorazepam (Ativan Inj) 2 mg Q15M PRN IV PUSH CIWA > 20 Last administered on at 09:30; Start 09/22/17 at 21:00 Haloperidol Lactate (Haldol Inj) 2 mg Q15M PRN IM SEE LABEL COMMENTS; Start at 21:00 Flumazenil (Romazicon Inj) 0.2 mg Q1M PRN IV PUSH SEE LABEL COMMENTS; Start at 21:00 Sertraline HCl (Zoloft) 50 mg DAILY PO Last administered on 10/04/17at 08:47; Start 09/23/17 at 15:30 Morphine Sulfate (Oramorph Sr) 15 mg Q8HR PO Last administered on 10/04/17at 06: 26; Start 09/23/17 at 22:00 Potassium Chloride (KCl Powder) 40 meq ONCE ONCE PO Last administered on at 16:42; Start 09/23/17 at 15:30; Stop 09/23/17 at 15:34; Status DC Nicotine (Habitrol 21 Mg Patch.24 Hr) 1 patch ONCE ONCE T-DERMAL ; Start at 16:45; Stop 09/23/17 at 17:06; Status DC Nicotine (Habitrol 21 Mg Patch.24 Hr) 1 patch DAILY T-DERMAL ; Start 09/24/17 at 09:00; Stop 09/24/17 at 09:00; Status DC Miscellaneous Information 1 DAILY T-DERMAL ; Start 09/24/17 at 09:00; Stop 09/24 at 09:00; Status DC Morphine Sulfate (Oramorph Sr) 15 mg ONCE ONCE PO ; Start 09/23/17 at 16:45; Stop 09/23/17 at 17:07; Status DC Trazodone HCl (Desyrel) 50 mg HS PRN PO INSOMNIA Last administered on at 00:59; Start 09/23/17 at 21:00; Stop 09/24/17 at 10:43; Status DC Mirtazapine (Remeron) 15 mg HS PO Last administered on 10/03/17at 21:05; Start 09/24/17 at 21:00 Potassium Chloride (KCl) 40 meq ONCE ONCE PO Last administered on 09/24/17at 11 :37; Start 09/24/17 at 10:45; Stop 09/24/17 at 10:51; Status DC Ibuprofen (Motrin) 800 mg Q8H PRN PO pain 3-10 Last administered on 09/26/17at 08:37; Start 09/25/17 at 12:00; Stop 09/27/17 at 20:56; Status DC Lorazepam (Ativan Inj) 1 mg Q15M PRN IV PUSH sz; Start 09/27/17 at 13:15 Potassium Chloride/Sodium Chloride 1,000 ml @ 84 mls/hr [id number] IV Last administered on 09/27/17at 14:00; Start 09/27/17 at 14:00; Stop 09/28/17 at 01:54 ; Status DC Potassium Chloride (KCl) 30 meq ONCE ONCE PO ; Start 09/27/17 at 21:00; Stop at 21:10; Status DC Potassium Bicarb/ Potassium Chloride (K-Lyte Cl Eff) 50 meq ONCE ONCE PO Last administered on 09/28/17at 10:45; Start 09/28/17 at 10:45; Stop 09/28/17 at 10:46; Status DC Gadodiamide (Omniscan Pf Inj) 8 ml STK-MED ONCE IVCONTRAST Last administered on 09/28/17at 18:10; Start 09/28/17 at 18:10; Stop 09/28/17 at 18:12; Status DC Gadodiamide (Omniscan Pf Inj) 20 ml STK-MED ONCE IVCONTRAST Last administered on 09/29/17at 11:00; Start 09/29/17 at 11:00; Stop 09/29/17 at 11:01; Status DC Multivitamins (Theragran) 1 tab DAILY PO Last administered on 10/04/17at 08:47; Start 10/01/17 at 11:00 Megestrol Acetate (Megace Liq) 400 mg DAILY PO Last administered on 10/04/17at 08:47; Start 10/01/17 at 11:00 Diatrizoate Meglum/ Diatrizoate Sod ( Gastrogilmar Liq) 18 ml ONCE ONCE PO Last administered on 10/01/17at 16:45; Start 10/01/17 at 12:56; Stop 10/01/17 at 13:37; Status DC Levetriacetam (Keppra) 500 mg Q12HR PO Last administered on 10/04/17at 08:48; Start 10/01/17 at 21:00 Iohexol (Omnipaque 350 Inj) 100 ml STK-MED ONCE IVCONTRAST Last administered on 10/01/17at 20:58; Start 10/01/17 at 20:58; Stop 10/01/17 at 20:59; Status DC A/P Problem List: (1) Delirium tremens ICD Code: F10.231 - Alcohol dependence with withdrawal delirium (2) Chronic back pain ICD Code: M54.9 - Dorsalgia, unspecified; G89.29 - Other chronic pain (3) Opioid dependence ICD Code: F11.20 - Opioid dependence, uncomplicated (4) Depression ICD Code: F32.9 - Major depressive disorder, single episode, unspecified Status: Acute Assessment and Plan Depression with hallucination: management per psych Seizures- while in hospital on 09/27/17- doubt DT since she has been in hospital since 2 days prior to 09/22. CIWA protocol in place Poss lymphoma left basal ganglia/thalamus. Abnormal head CT- MRI showed area if diminished attenuation left basal ganglia/thalamus concerning for lymphoma. Neurology evaluated the pt and recommends med/onc consultation. Consult for further recs Oncology ff, S/P LP by IR CSF sent for flow cytometry Might need biopsy PATIENT REFUSES BIOPSY AT THIS TIME CT chest and CT abd/pelvis reviewed no mets Severe protein calorie malnutrition bitemporal waisting sunken , low BMI, muscle waisting. Weight loss- 30 pound weight loss in 3 months (reported). Pt has been strongly advised on outpatient mammogram, colonoscopy, pap smear- pt never had any workup. In addition neuro/onc work-up in progress. Pt has been encouraged to eat as she have a poor appetite. While on the medical floor recommend calorie count to see if she is meeting her caloric needs. Add Megace, MVI, ensure to diet Hypokalemia- replaced. repeat in AM. Chronic back pain/ Opioid dependence Narcotics must be continued to prevent narcotic withdrawal. Safer modality would be long-acting narcotics. - on MS Contin started at 15 mg by mouth every 8 hours. Wean as tolerated. PATIENT REFUSING MRI AND BIOPSY OF BRAIN SEEN BY ONCOLOGY AND NEUROSURGERY REFUSING FURTHER WORKUP AT THIS TIME WILL NEED MRI TO MONITOR AREA/MASS/INFARCT? Discharge Planning PENDING PSYCHIATRIC CLEARANCE Nba Jensen DO Oct 04, 2017 10:23
[2017-10-04] MEDS ORDERED: LORazepam 2 MG/ML VIAL IV PUSH ONE (11:45)
--- NOTE | 2017-10-04 17:20 | RADRPT ---
EXAM DATE/TIME: 10/04/2017 14:28 [facility] COMPARISON: MRI BRAIN W & W/O CONTRAST, September 28, 2017, 17:04. INDICATIONS : Neoplasm. MEDICAL HISTORY : Seizures. DDD. SURGICAL HISTORY : None. ENCOUNTER: Subsequent ACUITY: 1 week PAIN SCORE: 3/10 LOCATION: cranial TECHNIQUE: 3-D CSI and single voxel spectroscopy was performed for evaluation of the left thalamic lesion. FINDINGS: T2 hyperintensity in the left thalamus has significantly decreased compared to the initial evaluation on 09/28/2017. Spectral analysis of the left thalamus demonstrates significant depression of the KAMAR and choline pe aks. A prominent lactate peak is also noted. The right thalamus demonstrates normal KAMAR and choline p eaks and there is no evidence of a lactate peak. CONCLUSION: 1. Spectral analysis of the left thalamus is most compatible with focal brain injury and acute to sub acute infarct with no findings to suggest a proliferative process. 2. No findings suggestive of a neoplastic process. 3. Decreasing T2 hyperintensity within the left thalamus which supports evolving infarct. Tang Casarez MD on October 04, 2017 at 17:08 Board Certified Radiologist. This report was verified electronically.
--- NOTE | 2017-10-04 17:28 | HHI.PYPN ---
Subjective Remarks Patient seen for follow-up, chart reviewed. Discussion she staff reported the patient had refused MRI yesterday. Patient was found lying in hospital bed, cooperative denying any acute psychiatric symptoms at this time. Discussion with the portions of having MRI done was reviewed with the patient which she then agreed to have. Patient denies any SI, HI, AVH or delusions. Patient continues to wait transferred to the medical service for further evaluation and follow-up. Review of Systems Except as stated in HPI: all other systems reviewed are Neg Mental Status Examination Appearance: Appropriate Consciousness: Lethargic Orientation: x4, Person, Place, Date/Time Motor Activity: Normal gait Speech: Unremarkable Language: Adequate Fund of Knowledge: Inadequate Attention and Concentration: Adequate Memory: Unremarkable Mood: Appropriate Affect: Appropriate Thought Process & Associations: Intact, Linear, Other Thought Content: Appropriate Hallucination Type: None Delusion Type: None Suicidal Ideation: No Suicidal Plan: No Suicidal Intention: No Homicidal Ideation: No Homicidal Plan: No Homicidal Intention: No Insight: Adequate Judgment: Adequate Results Vitals/IOs Vital Signs Date Time Temp Pulse Resp B/P (MAP) Pulse Ox O2 Delivery O2 Flow Rate FiO2 10/04/17 07:37 18 10/04/17 06:00 97.9 58 139/72 (94) 95 Intake and Output 10/04/17 10/04/17 10/05/17 08:00 16:00 00:00 Intake Total 240 ml 1200 ml 360 ml Balance 240 ml 1200 ml 360 ml Assessment & Plan Problem List: (1) Depression ICD Codes: F32.9 - Major depressive disorder, single episode, unspecified Status: Acute (2) Alcohol use disorder ICD Codes: F10.99 - Alcohol use, unspecified with unspecified alcohol-induced disorder (3) Opioid dependence ICD Codes: F11.20 - Opioid dependence, uncomplicated Assessment & Plan Patient at this time continues to be psychiatrically cleared for transfer to medical floor for further medical workup and management. Justification for Cont. Inpt. Patient was transferred to medical service floor Discharge Planning Patient to be transferred to medical floor Remigio Henry MD Oct 04, 2017 17:28
[2017-10-04] MEDS: ATORVASTATIN 40 MG TAB PO SCH (17:45)
[2017-10-04] MEDS: ASPIRIN 325 MG TAB PO SCH (17:45)
[2017-10-04 18:03] VITALS: BP 118/66; PULSE 63; RESP 15; TEMP 98; O2SAT 97
--- NOTE | 2017-10-04 18:29 | HHI.PR ---
Review/Management Diagnosis 1. Possible seizures - Likely withdrawal, etiology is withdrawal from benzos / opiates, Wellbutrin. 2. Polysubstance abuse. Ethanol dependence. 3. Chronic back pain. 4. Nicotine dependence 5. Abnormal MRI finding --cva based on MR spectroscopy Plan echocardiogram asa 325 mg daily, statin Ok from neurology standpoint to discharge home tomorrow if echo negative for thrombus continue keppra, asa, statin I counselled pt to abstain from ETOH No driving for 6 months because of SZ. please schedule follow up with me in my office in 2 weeks Diagnosis/Plan: Subjective Subjective Comments No acute events reported No further sz. Active Medications Current Medications Medications (Trade) Dose Ordered Sig/Alicia Route Start Time Stop Time Status Last Admin (Atarax) 50 mg Q6H PRN PO 09/22/17 19:15 10/01/17 21:43 (Tylenol) 650 mg Q4H PRN PO 09/22/17 19:15 09/30/17 23:50 (Milk Of Magnesia Liq) 30 ml DAILY PRN PO 09/22/17 19:15 10/03/17 08:35 (Mag-Al Plus Susp Liq) 30 ml Q6H PRN PO 09/22/17 19:15 (Habitrol 21 Mg Patch.24 Hr) 1 patch DAILY T-DERMAL 09/23/17 09:00 10/04/17 08:48 Miscellaneous Information 1 HS T-DERMAL 09/22/17 21:00 10/03/17 21:00 (Ativan) 1 mg Q4H PRN PO 09/22/17 21:00 09/27/17 21:09 (Ativan Inj) 1 mg Q4H PRN IV PUSH 09/22/17 21:00 (Ativan) 2 mg Q2H PRN PO 09/22/17 21:00 09/29/17 09:15 (Ativan Inj) 2 mg Q2H PRN IV PUSH 09/22/17 21:00 (Ativan Inj) 2 mg Q1H PRN IV PUSH 09/22/17 21:00 (Ativan Inj) 2 mg Q15M PRN IV PUSH 09/22/17 21:00 09/27/17 09:30 (Haldol Inj) 2 mg Q15M PRN IM 09/22/17 21:00 (Romazicon Inj) 0.2 mg Q1M PRN IV PUSH 09/22/17 21:00 (Zoloft) 50 mg DAILY PO 09/23/17 15:30 10/04/17 08:47 (Oramorph Sr) 15 mg Q8HR PO 09/23/17 22:00 10/04/17 13:24 (Remeron) 15 mg HS PO 09/24/17 21:00 10/03/17 21:05 (Ativan Inj) 1 mg Q15M PRN IV PUSH 09/27/17 13:15 (Theragran) 1 tab DAILY PO 10/01/17 11:00 10/04/17 08:47 (Megace Liq) 400 mg DAILY PO 10/01/17 11:00 10/04/17 08:47 (Keppra) 500 mg Q12HR PO 10/01/17 21:00 10/04/17 08:48 (Aspirin) 325 mg DAILY PO 10/04/17 17:45 (Lipitor) 40 mg DAILY PO 10/04/17 17:45 Allergies Allergies Coded Allergies No Known Allergies (Verified Allergy, Unknown, 09/22/17) Review of Systems All other ROS: ROS reviewed as documented in chart Exam I&O / VS 10/04/17 10/04/17 10/05/17 15:00 23:00 07:00 Intake Total 1200 ml 360 ml Balance 1200 ml 360 ml Intake Oral 1200 ml 360 ml # Voids 2 Vital Signs Date Time Temp Pulse Resp B/P (MAP) Pulse Ox O2 Delivery O2 Flow Rate FiO2 10/04/17 18:03 98.0 63 15 118/66 (83) 97 10/04/17 07:37 18 10/04/17 06:00 97.9 58 14 139/72 (94) 95 Exam Comments alert, speech normal Cn intact MOTOR 5/5 BUE, no drift. Objective Radiology Results MRI spectroscopy--c/w left thalamic stroke not tumor Orville Whitaker MD PhD Oct 04, 2017 18:28
[2017-10-04] MEDS: MIRTAZAPINE 15 MG TAB PO SCH (21:05)
[2017-10-04] MEDS: REMOVE OLD NICOTINE PATCH T-DERMAL SCH (21:06)
--- NOTE | 2017-10-04 22:18 | RADRPT ---
EXAM DATE/TIME: 10/04/2017 19:20 [facility] COMPARISON: No previous studies available for comparison. INDICATIONS : Cerebrovascular accident. MEDICAL HISTORY : Neck pain. Joint pain. Anxiety. Depression. Psychiatric problems. SURGICAL HISTORY : Unable to obtain. ENCOUNTER: Initial ACUITY: 1 day PAIN SCORE: 0/10 LOCATION: Bilateral neck PEAK SYSTOLIC VELOCITIES (cm/sec): ICA/CCA RATIO: Right: 0.7 Left: 1.2 ICA: Right: 62.2 Left: 94.6 CCA: Right: 95.3 Left: 81.7 ECA: Right: 87.5 Left: 88.2 VERTEBRAL: Right: 72.1 antegrade Left: 60.3 antegrade Elevated flow velocities and ICA/CCA ratios have been found to correlate with increased degrees of vessel stenosis, calculated as percentage of diameter relative to a normal segment of distal ICA/CCA FINDINGS: RIGHT CAROTID: No significant stenosis is visualized. The waveforms are within normal limits. LEFT CAROTID: No significant stenosis is visualized. The waveforms are within normal limits. VERTEBRAL ARTERIES: Antegrade flow is seen in both vertebral arteries. MISCELLANEOUS: None. CONCLUSION: No acute disease. Jossue Mahan MD on October 04, 2017 at 22:15 Board Certified Radiologist. This report was verified electronically.
[2017-10-05 05:57] VITALS: BP 123/79; PULSE 66; RESP 18; TEMP 98.1; O2SAT 97
[2017-10-05] MEDS: MORPHINE SULFATE 15 MG CONTROLLED RELEASE TAB PO SCH ×2 (06:00→14:10)
[2017-10-05 08:22] LABS: AUTOMATED NEUTROPHIL # 4.6 TH/MM3 (1.8-7.7); BASOPHIL # 0.1 TH/MM3 (0-0.2); BASOPHIL % 0.8 % (0.0-2.0); EOSINOPHIL # 0.1 TH/MM3 (0-0.4); EOSINOPHIL % 1.6 % (0.0-4.0); HEMATOCRIT 42.2 % (35.0-46.0); HEMOGLOBIN 14.1 GM/DL (11.6-15.3); LYMPH % 33.1 % (9.0-44.0); LYMPHOCYTE # 2.6 TH/MM3 (1.0-4.8); MEAN CELL VOLUME 91.8 FL (80.0-100.0); MEAN CORPUSCULAR HEMOGLOBIN 30.6 PG (27.0-34.0); MEAN CORPUSCULAR HGB CONC 33.4 % (32.0-36.0); MEAN PLATELET VOLUME 8.1 FL (7.0-11.0); MONOCYTE # 0.4 TH/MM3 (0-0.9); NEUT % 59.5 % (16.0-70.0); PLATELET COUNT 336 TH/MM3 (150-450); RED BLOOD COUNT 4.59 MIL/MM3 (4.00-5.30); RED CELL DISTRIBUTION WIDTH 14.1 % (11.6-17.2); WHITE BLOOD COUNT 7.7 TH/MM3 (4.0-11.0)
[2017-10-05 08:46] LABS: ALBUMIN 3.2 GM/DL (3.4-5.0); AST (GOT) 8 U/L (15-37); BICARBONATE 23.4 MEQ/L (21.0-32.0); BLOOD UREA NITROGEN 13 MG/DL (7-18); CHLORIDE 111 MEQ/L (98-107); CREATININE 0.71 MG/DL (0.50-1.00); GLOMERULAR FILTRATION RATE 84 ML/MIN (>89); GLUCOSE,RANDOM 95 MG/DL (74-106); MAGNESIUM 2.5 MG/DL (1.5-2.5); SODIUM (NA) 143 MEQ/L (136-145)
[2017-10-05 08:55] LABS: ALKALINE PHOSPHATASE 142 U/L (45-117); ALT (GPT) 8 U/L (10-53); FREE T4 0.72 NG/DL (0.76-1.46); PHOSPHORUS 3.5 MG/DL (2.5-4.9); TOTAL BILIRUBIN ADULT 0.2 MG/DL (0.2-1.0); TOTAL PROTEIN 6.9 GM/DL (6.4-8.2)
[2017-10-05] MEDS: MEGESTROL ACETATE SUSP 400 MG/10 ML CUP PO SCH (09:00)
--- NOTE | 2017-10-05 09:07 | HHI.PYPN ---
Subjective Remarks Patient seen for follow-up, chart review. Patient found lying in hospital bed, cooperative due to denying any acute psychiatric symptoms at this time, denies feeling depressed, manic or psychotic symptoms. Patient denies any perceptual disturbances or any delusions. Patient continues to await medical discharge. Patient states having been notified by neurology yesterday of a recent stroke which was shown imaging and aware of the plan of having a echo done prior to her discharge which she agrees to. Review of Systems Except as stated in HPI: all other systems reviewed are Neg Mental Status Examination Appearance: Appropriate Consciousness: Lethargic Orientation: x4, Person, Place, Date/Time Motor Activity: Normal gait Speech: Unremarkable Language: Adequate Fund of Knowledge: Inadequate Attention and Concentration: Adequate Memory: Unremarkable Mood: Appropriate Affect: Appropriate Thought Process & Associations: Intact, Linear, Other Thought Content: Appropriate Hallucination Type: None Delusion Type: None Suicidal Ideation: No Suicidal Plan: No Suicidal Intention: No Homicidal Ideation: No Homicidal Plan: No Homicidal Intention: No Insight: Adequate Judgment: Adequate Results Labs Labs reviewed Test 10/05/17 07:52 White Blood Count 7.7 TH/MM3 Red Blood Count 4.59 MIL/MM3 Hemoglobin 14.1 GM/DL Hematocrit 42.2 % Mean Corpuscular Volume 91.8 FL Mean Corpuscular Hemoglobin 30.6 PG Mean Corpuscular Hemoglobin Concent 33.4 % Red Cell Distribution Width 14.1 % Platelet Count 336 TH/MM3 Mean Platelet Volume 8.1 FL Neutrophils (%) (Auto) 59.5 % Lymphocytes (%) (Auto) 33.1 % Monocytes (%) (Auto) 5.0 % Eosinophils (%) (Auto) 1.6 % Basophils (%) (Auto) 0.8 % Neutrophils # (Auto) 4.6 TH/MM3 Lymphocytes # (Auto) 2.6 TH/MM3 Monocytes # (Auto) 0.4 TH/MM3 Eosinophils # (Auto) 0.1 TH/MM3 Basophils # (Auto) 0.1 TH/MM3 CBC Comment DIFF FINAL Differential Comment Blood Urea Nitrogen 13 MG/DL Creatinine 0.71 MG/DL Random Glucose 95 MG/DL Total Protein 6.9 GM/DL Albumin 3.2 GM/DL Calcium Level 9.0 MG/DL Phosphorus Level 3.5 MG/DL Magnesium Level 2.5 MG/DL Alkaline Phosphatase 142 U/L Aspartate Amino Transf (AST/SGOT) 8 U/L Alanine Aminotransferase (ALT/SGPT) 8 U/L Total Bilirubin 0.2 MG/DL Sodium Level 143 MEQ/L Potassium Level 4.0 MEQ/L Chloride Level 111 MEQ/L Carbon Dioxide Level 23.4 MEQ/L Anion Gap 9 MEQ/L Estimat Glomerular Filtration Rate 84 ML/MIN Free Thyroxine 0.72 NG/DL Thyroid Stimulating Hormone 3rd Gen 2.090 uIU/ML Vitals/IOs Vital Signs Date Time Temp Pulse Resp B/P (MAP) Pulse Ox O2 Delivery O2 Flow Rate FiO2 10/05/17 07:01 18 10/05/17 05:57 98.1 66 123/79 (94) 97 Intake and Output 10/05/17 10/05/17 10/06/17 08:00 16:00 00:00 Intake Total 120 ml 120 ml Balance 120 ml 120 ml Assessment & Plan Problem List: (1) Depression ICD Codes: F32.9 - Major depressive disorder, single episode, unspecified Status: Acute (2) Alcohol use disorder ICD Codes: F10.99 - Alcohol use, unspecified with unspecified alcohol-induced disorder (3) Opioid dependence ICD Codes: F11.20 - Opioid dependence, uncomplicated Assessment & Plan Patient at this time continues to be psychiatrically cleared for transfer to medical floor for further medical workup and management. Patient to have echocardiogram done today and continue recommendations as per primary medical team. Discharge planning in progress Justification for Cont. Inpt. Patient to be transferred to inpatient medical floor for further evaluation and management. Discharge Planning To be transferred to medical floor Remigio Henry MD Oct 05, 2017 09:07
--- NOTE | 2017-10-05 09:35 | HHI.PR ---
Subjective Remarks Patient reports she is feeling great. She is eager to go home. Objective Vitals Vital Signs Date Time Temp Pulse Resp B/P (MAP) Pulse Ox O2 Delivery O2 Flow Rate FiO2 10/05/17 07:01 18 10/05/17 05:57 98.1 66 18 123/79 (94) 97 10/04/17 18:03 98.0 63 15 118/66 (83) 97 I/O 10/04/17 10/04/17 10/04/17 10/05/17 10/05/17 10/05/17 07:00 15:00 23:00 07:00 15:00 23:00 Intake Total 240 ml 1200 ml 950 ml 120 ml 120 ml Balance 240 ml 1200 ml 950 ml 120 ml 120 ml Intake Oral 240 ml 1200 ml 950 ml 120 ml 120 ml # Voids 1 3 1 Result Diagram: 10/05/17 0752 10/05/17 0752 Objective Remarks GENERAL: No acute distress. CARDIOVASCULAR: Regular rate and rhythm. RESPIRATORY: No accessory muscle use. Clear to auscultation. Breath sounds equal bilaterally. GASTROINTESTINAL: Abdomen soft, non-tender, nondistended. MUSCULOSKELETAL: Extremities without clubbing, cyanosis, or edema. No obvious deformities. NEUROLOGICAL: Awake and alert. Normal speech. PSYCHIATRIC: Appropriate mood and affect; insight and judgment normal. A/P Problem List: (1) Delirium tremens ICD Code: F10.231 - Alcohol dependence with withdrawal delirium (2) Chronic back pain ICD Code: M54.9 - Dorsalgia, unspecified; G89.29 - Other chronic pain (3) Opioid dependence ICD Code: F11.20 - Opioid dependence, uncomplicated (4) Depression ICD Code: F32.9 - Major depressive disorder, single episode, unspecified Status: Acute Assessment and Plan 62 Y/O female with: Depression with hallucination: management per psych Seizures- Appreciate Neurology following. could be withdrawal. CIWA protocol in place. On Keppra per Neurology. DC home on Keppra and FU outpatient with Neurology Thalamic CVA: Abnormal head CT- MRI showed area if diminished attenuation left basal ganglia/thalamus concerning for lymphoma. SPECT MRI more consistent with thalamic CVA. Appreciate Neurology input. - Continue aspirin and statin Severe protein calorie malnutrition bitemporal waisting sunken , low BMI, muscle waisting. Weight loss- 30 pound weight loss in 3 months (reported). - Patient counseled on proper nutrition. Advised to follow up outpatient. Discharge Planning OK DC today per psychiatry if echo negative for thrombus. Virginia Yip MD Oct 05, 2017 09:35
[2017-10-05] MEDS ORDERED: LEVE500 PO (09:36)
[2017-10-05] MEDS ORDERED: ASA325 PO (09:36)
[2017-10-05] MEDS ORDERED: ATOR40TA16 PO (09:36)
[2017-10-05] MEDS: levETIRAcetam 500 MG TAB PO SCH (09:42)
[2017-10-05] MEDS: ASPIRIN 325 MG TAB PO SCH (09:42)
[2017-10-05] MEDS: SERTRALINE HCL 50 MG TAB PO SCH (09:43)
[2017-10-05] MEDS: ATORVASTATIN 40 MG TAB PO SCH (09:43)
[2017-10-05] MEDS: MULTIVITAMIN TAB PO SCH (09:43)
[2017-10-05] MEDS: NICOTINE 21 MG/24 HR PATCH T-DERMAL SCH (09:43)
--- NOTE | 2017-10-05 09:49 | PD.TTN ---
Patient Problems 1. Discharge planning 2. Medication compliance 3. Knowledge deficit 4. Lack of coping skills Progress Toward Goals Provider Present: Dr. Navneet Henry Provider Input: 09/29 patient may have cancer and is in need for medical care but psychiatricly cleared 10/04 patient is awaiting transfer to medical floor for oncology to check on a mass in her head they found Psychiatric Counselors Present: Kandi Diaz LCSW Psych Therapist Input: 09/29 patient has no active insurance, will call family, patient is doing better and would like to go home 10/04 patient has been stabilized mentally and is awaiting medically treatment, she has been asking to go home and denied the MRI but brother is very involved and she agreed to further treatment later in the day- if no medical bed is open she may have to go to outpatient care with oncology Group Spec/RT/OT/ANGELO Present: Dennys Smith OT Group Spec/RT/OT/ANGELO Input: 09/29 pt does not leave her room, no participation 10/04 remains in bed and does not attend any groups Kandi Diaz LCSW Oct 05, 2017 09:49
[2017-10-05 16:15] LABS: HEMOGLOBIN A1C 5.5 % (4.3-6.0)
--- NOTE | 2017-10-05 17:12 | ECHRPT ---
Indication: cva/tia CONCLUSIONS Normal left ventricular size. The left ventricular systolic function is hyperdynamic with an estimated ejection fraction in the ra nge of 65- 70%. Mild mitral valve regurgitation. No aortic valve regurgitation. No aortic valve stenosis. There is mild tricuspid valve regurgitation. The estimated pulmonary arterial pressure is 32.7 mmHg. BP: / HR: Rhythm: MEASUREMENTS (Male / Female) Normal Values Technical Quality:Good 2D ECHO LV Diastolic Diameter PLAX 4.0 cm 4.2 - 5.9 / 3.9 - 5.3 cm LV Systolic Diameter PLAX 2.7 cm IVS Diastolic Thickness 1.1 cm 0.6 - 1.0 / 0.6 - 0.9 cm LVPW Diastolic Thickness 0.9 cm 0.6 - 1.0 / 0.6 - 0.9 cm LV Relative Wall Thickness 0.5 RV Internal Dim ED PLAX 2.7 cm M-MODE Aortic Root Diameter MM 3.3 cm LA Systolic Diameter MM 2.8 cm LA Ao Ratio MM 0.8 AV Cusp Separation MM 1.8 cm DOPPLER Mitral E Point Velocity 55.3 cm/s Mitral A Point Velocity 58.2 cm/s Mitral E to A Ratio 1.0 LV E' Lateral Velocity 7.5 cm/s Mitral E to LV E' Lateral Ratio 7.4 LV E' Septal Velocity 5.6 cm/s Mitral E to LV E' Septal Ratio 9.9 TR Peak Velocity 238.0 cm/s TR Peak Gradient 22.7 mmHg Right Atrial Pressure 10.0 mmHg Pulmonary Artery Systolic Pressu 32.7 mmHg Right Ventricular Systolic Press 32.7 mmHg FINDINGS LEFT VENTRICLE Normal left ventricular size. The left ventricular systolic function is hyperdynamic with an estimated ejection fraction in the ra nge of 65- 70%. RIGHT VENTRICLE Normal right ventricular size and systolic function. LEFT ATRIUM The left atrial size is normal. RIGHT ATRIUM The right atrial size is normal. ATRIAL SEPTUM Normal atrial septal thickness without atrial level shunting by limited color doppler interrogation. AORTA The aortic root and proximal ascending aorta are normal in size on limited imaging. MITRAL VALVE Structurally normal mitral valve. Mild mitral valve regurgitation. AORTIC VALVE Trileaflet aortic valve. No aortic valve regurgitation. No aortic valve stenosis. TRICUSPID VALVE Structurally normal tricuspid valve. There is mild tricuspid valve regurgitation. The estimated pulmonary arterial pressure is 32.7 mmHg. PULMONARY VALVE No pulmonary valve regurgitation or stenosis. VESSELS The inferior vena cava is normal in size. PERICARDIUM No pericardial effusion. Jai Hermosillo MD (Electronically Signed) Final Date:05 October 2017 17:11
[2017-10-05 18:09] VITALS: BP 137/73; PULSE 60; RESP 17; TEMP 98.1; O2SAT 98
== END 2017-10-05 20:02 | disposition home or self-care (01) | DRG 881 ==
LOC: H270 19:03 → H260 09-24 12:00 → H4EA 09-27 09:39
PROVIDERS: ADMIT Student in an Organized Health Care Education/Training Program; ATTEND Student in an Organized Health Care Education/Training Program
PROC: 009U3ZX Drainage of Spinal Canal, Percutaneous Approach, Diagnostic (ICD-10-PCS; principal; 2017-10-01)
PROC: B01BZZZ Fluoroscopy of Spinal Cord (ICD-10-PCS; 2017-10-01)
DX: F32.9 Major depressive disorder, single episode, unspecified (principal); I63.9 Cerebral infarction, unspecified; E43 Unspecified severe protein-calorie malnutrition; R64 Cachexia; F10.231 Alcohol dependence with withdrawal delirium; G40.89 Other seizures; F11.20 Opioid dependence, uncomplicated; Z68.1 Body mass index [BMI] 19.9 or less, adult; E87.6 Hypokalemia; G89.29 Other chronic pain; M54.5 Low back pain; F17.210 Nicotine dependence, cigarettes, uncomplicated; R93.8 Abnormal findings on diagnostic imaging of other specified body structures; R73.9 Hyperglycemia, unspecified
CPT/HCPCS: 62270; 70450; 70544; 70548; 70553; 71045; 71260; 74177; 76390; 77003; 80048; 80053; 80061; 82533; 82550; 83036; 83735; 83880; 84100; 84436; 84439; 84443; 84481; 85025; 85610; 85730; 88108; 93306; 93880; 95819; A9579; J2060; J3480; Q9963; Q9967